=== PATIENT | female | born 1965 | race Caucasian/White ===

== ENCOUNTER 2019-05-22 02:22 | Emergency (ER) | payer OTHER ==
[2019-05-22] MEDS ORDERED: MORPHINE 4 MG/ML SYR ONE (03:08)
[2019-05-22] MEDS ORDERED: NA CHLORIDE 0.9% 1,000 ML ONE (03:09)
[2019-05-22] MEDS ORDERED: KETOROLAC 30 MG/ML INJ ONE (03:09)
[2019-05-22] MEDS ORDERED: ONDANSETRON 4 MG/2 ML VIAL ONE (03:09)
[2019-05-22] MEDS ORDERED: FAMOTIDINE 20 MG/2 ML VIAL IV ONE (03:15)
[2019-05-22 04:05] LABS: Absolute Lymphocytes (CBC) 0.9 K/uL (0.7-4.9); Basophils % 0.7 % (0-1.3); Hematocrit 39.5 % (36.0-45.0); MPV 7.4 fL (7.6-11.3); RBC Red Blood Cell Count 4.69 M/uL (3.86-4.86)
[2019-05-22 04:15] LABS: Albumin 3.4 g/dL (3.4-5.0); Bilirubin Direct 0.2 mg/dL (0-0.2); Bilirubin Total 0.6 mg/dL (0.2-1.0); Protein, Total 6.5 g/dL (6.4-8.2)
--- NOTE | 2019-05-22 04:44 | ER ---
Nurse's Notes [facility] Name: Carley Caceres Age: 53 yrs Sex: Female : 1965 Arrival Date: 05/22/2019 Time: 02:29 Bed 6 Private MD: Diagnosis: Hydronephrosis with renal and ureteral calculous obstruction-3 mm uvj Presentation: 05/22 02:32 Presenting complaint: Patient states: "I am having abdominal pain on my right side with jd3 nausea and vomiting.". Transition of care: patient was not received from another setting of care. Onset of symptoms was May 22, 2019. Risk Assessment: Do you want to hurt yourself or someone else? Patient reports no desire to harm self or others. Initial Sepsis Screen: Does the patient meet any 2 criteria? No. Patient's initial sepsis screen is negative. Does the patient have a suspected source of infection? No. Patient's initial sepsis screen is negative. Care prior to arrival: None. 02:32 Method Of Arrival: Ambulatory jd3 02:32 Acuity: BHAVYA 3 jd3 Historical: - Allergies: 02:33 No Known Allergies; jd3 - Home Meds: 02:33 None [Active]; jd3 - PMHx: 02:33 None; jd3 - PSHx: 02:33 Cholecystectomy; knee; foot; jd3 - Immunization history:: Adult Immunizations up to date. - Social history:: Smoking status: Patient/guardian denies using tobacco. - Ebola Screening: : Patient negative for fever greater than or equal to 101.5 degrees Fahrenheit, and additional compatible Ebola Virus Disease symptoms. - Family history:: not pertinent. Screenin:11 Abuse screen: Denies threats or abuse. Denies injuries from another. Nutritional rr5 screening: No deficits noted. Tuberculosis screening: No symptoms or risk factors identified. Fall Risk IV access (20 points). Total Del Rosario Fall Scale indicates No Risk (0-24 pts). Assessment: 02:50 General: Appears in no apparent distress. uncomfortable, Behavior is calm, cooperative, rr5 appropriate for age. Pain: Complains of pain in right upper quadrant Pain radiates to right mid back Pain currently is 10 out of 10 on a pain scale. Quality of pain is described as aching, Pain began gradually, Is intermittent. 02:50 Neuro: Level of Consciousness is awake, alert, obeys commands, Oriented to person, rr5 place, time, situation, Appropriate for age. Cardiovascular: Capillary refill < 3 seconds Patient's skin is warm and dry. Respiratory: Airway is patent Respiratory effort is even, unlabored, Respiratory pattern is regular, symmetrical. GI: Abdomen is round Reports upper abdominal pain. : Reports pain in right flank(s), Pain is 10 out of 10 on a pain scale. EENT: No signs and/or symptoms were reported regarding the EENT system. Derm: Skin is intact, is healthy with good turgor, Skin temperature is warm. Musculoskeletal: Capillary refill < 3 seconds, Reports pain in back. 03:45 Reassessment: Patient appears in no apparent distress at this time. Patient is alert, rr5 oriented x 3, equal unlabored respirations, skin warm/dry/pink. no complaints made, awaiting for CT result. Patient denies pain at this time. Patient states feeling better. Patient states symptoms have improved. 04:30 Reassessment: Patient appears in no apparent distress at this time. Patient and/or rr5 family updated on plan of care and expected duration. Pain level reassessed. Patient is alert, oriented x 3, equal unlabored respirations, skin warm/dry/pink. 05:09 Reassessment: Patient appears in no apparent distress at this time. Patient is alert, rr5 oriented x 3, equal unlabored respirations, skin warm/dry/pink. discharge instruction given and explained without complaints made, verbalized understanding. Patient denies pain at this time. Patient states feeling better. Patient states symptoms have improved. Vital Signs: 02:33 BP 158 / 77; Pulse 57; Resp 19 S; Temp 97.7(O); Pulse Ox 97% on R/A; Weight 93.44 kg jd3 (R); Height 5 ft. 4 in. (162.56 cm) (R); Pain 9/10; 03:47 BP 128 / 73; Pulse 66; Resp 16; Pulse Ox 99% ; Pain 0/10; rr5 04:54 BP 116 / 73; Pulse 58; Resp 16; Pulse Ox 97% on R/A; rv 05:10 BP 119 / 70; Pulse 60; Resp 17; Temp 97.9; Pulse Ox 99% ; Pain 0/10; rr5 02:33 Body Mass Index 35.36 (93.44 kg, 162.56 cm) jd3 ED Course: 02:29 Patient arrived in ED. cf2 02:31 Osito Chew, RN is Primary Nurse. rr5 02:32 Triage completed. jd3 02:34 Arm band placed on. jd3 02:36 Alonso Johnson MD is Attending Physician. nusrat 03:00 Inserted saline lock: 20 gauge in left forearm, using aseptic technique. Blood rr5 collected. 03:37 CT Stone Protocol In Process Unspecified. EDMS 03:47 No provider procedures requiring assistance completed. rr5 03:47 Lab(s) recollected, by me, sent to lab. rr5 04:42 Clovis Vann MD is Referral Physician. nusrat 04:56 Patient has correct armband on for positive identification. Bed in low position. Call rv light in reach. Pulse ox on. NIBP on. Administered Medications: 03:05 Drug: NS 0.9% 1000 ml Route: IV; Rate: 1 bolus; Site: left forearm; rr5 05:11 Follow up: Response: No adverse reaction; IV Status: Completed infusion; IV Intake: rr5 1000ml 03:06 Drug: Zofran 4 mg Route: IVP; Site: left forearm; rr5 04:11 Follow up: Response: No adverse reaction rr5 03:08 Drug: TORadol 30 mg Route: IVP; Site: left forearm; rr5 04:08 Follow up: Response: No adverse reaction; Marked relief of symptoms rr5 03:10 Drug: morphine 4 mg {Note: rass 0.} Route: IVP; Site: left forearm; rr5 04:10 Follow up: Response: No adverse reaction; Marked relief of symptoms; RASS: Alert and rr5 Calm (0) 03:11 Drug: Pepcid 20 mg Route: IVP; Site: left forearm; rr5 04:11 Follow up: Response: No adverse reaction; Marked relief of symptoms rr5 04:48 Drug: Flomax 0.4 mg Route: PO; rr5 05:11 Follow up: Response: No adverse reaction rr5 04:48 Drug: Rocephin 1 grams Route: IV; Rate: per protocol; Site: left forearm; rr5 05:10 Follow up: Response: No adverse reaction; IV Status: Completed infusion; IV Intake: [id number] Intake: 05:10 IV: 10ml; Total: 10ml. rr5 05:11 IV: 1000ml; Total: 1010ml. rr5 Outcome: 04:42 Discharge ordered by MD. silverio 05:11 Patient left the ED. rr5 Signatures: Dispatcher [employer] EDMS Alonso Johnson MD MD cha Davies, Jonathon, RN RN jd3 Asher Jerry RN RN Osito Madrigal RN RN rr5 Nohelia Celaya cf2 Corrections: (The following items were deleted from the chart) 04:54 04:54 BP 153 / 69; Pulse 69bpm; Resp 21bpm; Pulse Ox 99% RA; rv rv
--- NOTE | 2019-05-22 04:44 | EDPHYS ---
Physician Documentation [facility] Name: Carley Caceres Age: 53 yrs Sex: Female : 1965 Arrival Date: 05/22/2019 Time: 02:29 Bed 6 Private MD: RAÚL Physician Alonso Johnson HPI: 05/22 03:08 This 53 yrs old Female presents to ER via Ambulatory with complaints of Back nusrat Pain, Abdominal Pain. 03:08 The patient presents with pain that is acute, with no known mechanism of injury. The nusrat symptoms are located in the low back, right mid back and right low back. Onset: The symptoms/episode began/occurred just prior to arrival. The pain does not radiate. Associated signs and symptoms: The patient has no apparent associated signs or symptoms. The problem was sustained without known cause. Modifying factors: The patient symptoms are alleviated by nothing, the patient symptoms are aggravated by any movement, nothing. Severity of symptoms: At their worst the symptoms were moderate, in the emergency department the symptoms are unchanged. The patient has not experienced similar symptoms in the past. Historical: - Allergies: 02:33 No Known Allergies; jd3 - Home Meds: 02:33 None [Active]; jd3 - PMHx: 02:33 None; jd3 - PSHx: 02:33 Cholecystectomy; knee; foot; jd3 - Immunization history:: Adult Immunizations up to date. - Social history:: Smoking status: Patient/guardian denies using tobacco. - Ebola Screening: : Patient negative for fever greater than or equal to 101.5 degrees Fahrenheit, and additional compatible Ebola Virus Disease symptoms. - Family history:: not pertinent. ROS: 03:08 Constitutional: Negative for fever, chills, and weight loss, Eyes: Negative for injury, nusrat pain, redness, and discharge, ENT: Negative for injury, pain, and discharge, Neck: Negative for injury, pain, and swelling, Cardiovascular: Negative for chest pain, palpitations, and edema, Respiratory: Negative for shortness of breath, cough, wheezing, and pleuritic chest pain, : Negative for injury, bleeding, discharge, and swelling, MS/Extremity: Negative for injury and deformity, Skin: Negative for injury, rash, and discoloration, Neuro: Negative for headache, weakness, numbness, tingling, and seizure, Psych: Negative for depression, anxiety, suicide ideation, homicidal ideation, and hallucinations, Allergy/Immunology: Negative for hives, rash, and allergies, Endocrine: Negative for neck swelling, polydipsia, polyuria, polyphagia, and marked weight changes, Hematologic/Lymphatic: Negative for swollen nodes, abnormal bleeding, and unusual bruising. 03:08 Abdomen/GI: Positive for abdominal pain, of the posterior aspect of right lateral abdomen, anterior aspect of right lateral abdomen, right upper quadrant and right lower quadrant. Exam: 03:08 Constitutional: This is a well developed, well nourished patient who is awake, alert, nusrat and in no acute distress. Head/Face: Normocephalic, atraumatic. Eyes: Pupils equal round and reactive to light, extra-ocular motions intact. Lids and lashes normal. Conjunctiva and sclera are non-icteric and not injected. Cornea within normal limits. Periorbital areas with no swelling, redness, or edema. ENT: Nares patent. No nasal discharge, no septal abnormalities noted. Tympanic membranes are normal and external auditory canals are clear. Oropharynx with no redness, swelling, or masses, exudates, or evidence of obstruction, uvula midline. Mucous membranes moist. Neck: Trachea midline, no thyromegaly or masses palpated, and no cervical lymphadenopathy. Supple, full range of motion without nuchal rigidity, or vertebral point tenderness. No Meningismus. Chest/axilla: Normal chest wall appearance and motion. Nontender with no deformity. No lesions are appreciated. Cardiovascular: Regular rate and rhythm with a normal S1 and S2. No gallops, murmurs, or rubs. Normal PMI, no JVD. No pulse deficits. Respiratory: Lungs have equal breath sounds bilaterally, clear to auscultation and percussion. No rales, rhonchi or wheezes noted. No increased work of breathing, no retractions or nasal flaring. Back: No spinal tenderness. No costovertebral tenderness. Full range of motion. Skin: Warm, dry with normal turgor. Normal color with no rashes, no lesions, and no evidence of cellulitis. MS/ Extremity: Pulses equal, no cyanosis. Neurovascular intact. Full, normal range of motion. Neuro: Awake and alert, GCS 15, oriented to person, place, time, and situation. Cranial nerves II-XII grossly intact. Motor strength 5/5 in all extremities. Sensory grossly intact. Cerebellar exam normal. Normal gait. Psych: Awake, alert, with orientation to person, place and time. Behavior, mood, and affect are within normal limits. 03:08 Abdomen/GI: Inspection: distension, Bowel sounds: normal, Palpation: mild abdominal tenderness, in the right upper quadrant and right lower quadrant, Liver: no appreciated palpable abnormalities, Hernia: not appreciated. Vital Signs: 02:33 BP 158 / 77; Pulse 57; Resp 19 S; Temp 97.7(O); Pulse Ox 97% on R/A; Weight 93.44 kg jd3 (R); Height 5 ft. 4 in. (162.56 cm) (R); Pain 9/10; 03:47 BP 128 / 73; Pulse 66; Resp 16; Pulse Ox 99% ; Pain 0/10; rr5 04:54 BP 116 / 73; Pulse 58; Resp 16; Pulse Ox 97% on R/A; rv 05:10 BP 119 / 70; Pulse 60; Resp 17; Temp 97.9; Pulse Ox 99% ; Pain 0/10; rr5 02:33 Body Mass Index 35.36 (93.44 kg, 162.56 cm) jd3 MDM: 02:36 Patient medically screened. [facility] 03:10 Data reviewed: vital signs, nurses notes. [facility] 05/22 03:08 Order name: Basic Metabolic Panel; Complete Time: 04:41 [facility] 05/22 03:08 Order name: CBC with Diff; Complete Time: 04:41 [facility] 05/22 03:08 Order name: Creatinine for Radiology; Complete Time: 04:41 [facility] 05/22 03:08 Order name: Hepatic Function; Complete Time: 04:41 [facility] 05/22 03:08 Order name: Lipase; Complete Time: 04:41 [facility] 05/22 03:19 Order name: Urine Dipstick--Ancillary (enter results) or 05/22 03:08 Order name: CT Stone Protocol [facility] 05/22 03:08 Order name: IV Saline Lock; Complete Time: 03:10 [facility] 05/22 03:08 Order name: Labs collected and sent; Complete Time: 03:10 [facility] Administered Medications: 03:05 Drug: NS 0.9% 1000 ml Route: IV; Rate: 1 bolus; Site: left forearm; rr5 05:11 Follow up: Response: No adverse reaction; IV Status: Completed infusion; IV Intake: rr5 1000ml 03:06 Drug: Zofran 4 mg Route: IVP; Site: left forearm; rr5 04:11 Follow up: Response: No adverse reaction rr5 03:08 Drug: TORadol 30 mg Route: IVP; Site: left forearm; rr5 04:08 Follow up: Response: No adverse reaction; Marked relief of symptoms rr5 03:10 Drug: morphine 4 mg {Note: rass 0.} Route: IVP; Site: left forearm; rr5 04:10 Follow up: Response: No adverse reaction; Marked relief of symptoms; RASS: Alert and rr5 Calm (0) 03:11 Drug: Pepcid 20 mg Route: IVP; Site: left forearm; rr5 04:11 Follow up: Response: No adverse reaction; Marked relief of symptoms rr5 04:48 Drug: Flomax 0.4 mg Route: PO; rr5 05:11 Follow up: Response: No adverse reaction rr5 04:48 Drug: Rocephin 1 grams Route: IV; Rate: per protocol; Site: left forearm; rr5 05:10 Follow up: Response: No adverse reaction; IV Status: Completed infusion; IV Intake: [id number] Disposition: 05/22/19 04:42 Discharged to Home. Impression: Hydronephrosis with renal and ureteral calculous obstruction - 3 mm uvj. - Condition is Stable. - Discharge Instructions: Kidney Stones, Kidney Stones, [id number], Hydronephrosis, Dietary Guidelines to Help Prevent Kidney Stones. - Prescriptions for Tylenol- Codeine #3 300-30 mg Oral Tablet - take 2 tablet by ORAL route every 6 hours As needed; 30 tablet. Zofran 4 mg Oral Tablet - take 1 tablet by ORAL route every 12 hours As needed; 20 tablet. Flomax 0.4 mg Oral Capsule, Sust. Release 24 hr - take 1 capsule by ORAL route once daily 1/2 hour following the same meal each day; 30 capsule. Cipro 500 mg Oral Tablet - take 1 tablet by ORAL route every 12 hours for 7 days; 14 tablet. - Medication Reconciliation Form, Thank You Letter, Antibiotic Education, Prescription Opioid Use form. - Follow up: Private Physician; When: 2 - 3 days; Reason: Recheck today's complaints, Continuance of care, Re-evaluation by your physician. Follow up: Clovis Vann MD; When: 2 - 3 days; Reason: Recheck today's complaints, Re-evaluation by your physician. - Problem is new. - Symptoms have improved. Signatures: Dispatcher [employer] Alonso Garcia MD MD cha Davies, Jonathon RN RN jd3 Osito Chew RN RN rr5 Corrections: (The following items were deleted from the chart) 05:11 04:42 05/22/2019 04:42 Discharged to Home. Impression: Hydronephrosis with renal and rr5 ureteral calculous obstruction - 3 mm uvj. Condition is Stable. Forms are Medication Reconciliation Form, Thank You Letter, Antibiotic Education, Prescription Opioid Use. Follow up: Private Physician; When: 2 - 3 days; Reason: Recheck today's complaints, Continuance of care, Re-evaluation by your physician. Follow up: Clovis Vann; When: 2 - 3 days; Reason: Recheck today's complaints, Re-evaluation by your physician. Problem is new. Symptoms have improved. nusrat
[2019-05-22] MEDS ORDERED: TAMSULOSIN 0.4 MG SR CAP ONE (04:45)
[2019-05-22 04:46] LABS: Urine Blood 2+ (NEG); Urine Glucose 3+ (NEG); Urine Protein 1+ (NEG); Urine Specific Gravity >1.030 (1.005-1.030)
[2019-05-22] MEDS ORDERED: CEFTRIAXONE/SWI 1gm 1 GM/10 ML SYR ONE (04:46)
[2019-05-22 06:01] VITALS: BP 119/70; TEMP 97.9; O2SAT 99
--- NOTE | 2019-05-23 11:42 | RAD REPORT ---
EXAM DESCRIPTION: CT - Stone Protocol - 05/22/2019 5:53 am CLINICAL HISTORY: The patient is 53 years old and is Female; ABD PAIN TECHNIQUE: Axial computed tomography images of the abdomen and pelvis without intravenous contrast. Sagittal and coronal reformatted images were created and reviewed. This CT exam was performed usi ng one or more of the following dose reduction techniques: automated exposure control, adjustment o f the mA and/or kV according to patient size, and/or use of iterative reconstruction technique. COMPARISON: No relevant prior studies available. FINDINGS: LUNG BASES: Unremarkable. No mass. No consolidation. ABDOMEN: LIVER: Homogeneous without focal mass. GALLBLADDER AND BILE DUCTS: Surgical clips are present in the right upper quadrant, consistent w ith previous cholecystectomy. PANCREAS: Fatty infiltration of the pancreas is noted. No ductal dilation. SPLEEN: Unremarkable. ADRENALS: Unremarkable. No mass. KIDNEYS AND URETERS: Mild right hydroureteronephrosis is present secondary to a 3 mm right UVJ c alculus. Edema of the right kidney with perinephric and periureteral stranding is present. Several right intrarenal calcifications are present. The left kidney is normal. STOMACH AND BOWEL: The stomach is decompressed. The small bowel is normal in caliber. Stool is p resent throughout the colon. There is no mucosal thickening or evidence of bowel obstruction. PELVIS: APPENDIX: The appendix is normal in caliber without surrounding inflammation. BLADDER: The bladder is nearly empty. No stones. REPRODUCTIVE: Unremarkable as visualized. ABDOMEN and PELVIS: INTRAPERITONEAL SPACE: Unremarkable. No free air. No significant fluid collection. BONES/JOINTS: Multilevel degenerative changes of the spine are present. SOFT TISSUES: The soft tissues are normal. VASCULATURE: Unremarkable. No abdominal aortic aneurysm. LYMPH NODES: Unremarkable. No enlarged lymph nodes. IMPRESSION: Mild right hydroureteronephrosis is present secondary to a 3 mm right UVJ calculus. Electronically signed by: Dora Irizarry MD 05/22/2019 4:07 AM ADULT EDUCATION TEACHER Due to temporary technical issues with the PACS/Fluency reporting system, reports are being signed by the in house radiologist as a courtesy to ensure prompt reporting. The interpreting radiologist is f ully responsible for the content of the report.
== END 2019-05-22 05:11 | disposition home or self-care (01) ==
LOC: ER 02:22
DX: N13.2 Hydronephrosis with renal and ureteral calculous obstruction (principal)
CPT/HCPCS: 96365; 96361; 85025; 80048; 36415; 80076; 81003; 83690; 76377; 74176; 96375; 99284; J0696; J7030; J2405

== ENCOUNTER 2020-03-05 23:28 | Emergency (ER) | payer OTHER ==
[2020-03-06] MEDS ORDERED: MORPHINE 4 MG/ML SYR ONE (00:03)
[2020-03-06] MEDS ORDERED: ONDANSETRON 4 MG/2 ML VIAL ONE (00:04)
[2020-03-06 00:17] LABS: Absolute Lymphocytes (CBC) 2.2 K/uL (0.7-4.9); Basophils % 1.1 % (0-1.3); Hematocrit 42.6 % (36.0-45.0); Lymphocytes % 29.9 % (15.3-44.8)
[2020-03-06 00:27] LABS: Albumin 3.7 g/dL (3.4-5.0); Bilirubin Direct 0.2 mg/dL (0-0.2); Bilirubin Total 0.7 mg/dL (0.2-1.0); Potassium 3.8 mmol/L (3.5-5.1); Protein, Total 7.6 g/dL (6.4-8.2)
[2020-03-06 01:32] LABS: Urine Blood 2+ (NEG); Urine Glucose 2+ (NEG); Urine Protein NEGATIVE (NEG); Urine Specific Gravity >1.030 (1.005-1.030)
--- NOTE | 2020-03-06 01:37 | ER ---
Nurse's Notes [facility] Name: Carley Caceres Age: 54 yrs Sex: Female : 1965 Arrival Date: 03/05/2020 Time: 23:32 Bed 14 Private MD: Diagnosis: Calculus of ureter Presentation: 03/05 23:41 Chief complaint: Patient states: R flank pain and nausea that began at 9pm this ss evening. Pt has a history of kidney stones and feels like this feels very similar. Coronavirus screen: Client denies travel out of the [place] in the last 14 days. Ebola Screen: Patient denies exposure to infectious person. Patient denies travel to an Ebola-affected area in the 21 days before illness onset. Initial Sepsis Screen: Does the patient meet any 2 criteria? No. Patient's initial sepsis screen is negative. Does the patient have a suspected source of infection? No. Patient's initial sepsis screen is negative. Risk Assessment: Do you want to hurt yourself or someone else? Patient reports no desire to harm self or others. Onset of symptoms was March 05, 2020. 23:41 Method Of Arrival: Ambulatory ss 23:41 Acuity: BHAVYA 3 ss Historical: - Allergies: 23:45 No Known Allergies; ss - Home Meds: 23:45 None [Active]; ss - PMHx: 23:45 Kidney stones; ss - PSHx: 23:45 Cholecystectomy; knee; foot; ss - Immunization history:: Adult Immunizations up to date. - Social history:: Smoking status: Patient denies any tobacco usage or history of. Screenin/08 00:04 Abuse screen: Denies threats or abuse. Denies injuries from another. Nutritional wh screening: No deficits noted. Tuberculosis screening: No symptoms or risk factors identified. Fall Risk None identified. Assessment: 00:02 General: Appears. General: Appears in no apparent distress. uncomfortable, Behavior is wh calm, cooperative, appropriate for age. Pain: Complains of pain in right mid back and right low back Pain does not radiate. Pain currently is 9 out of 10 on a pain scale. Quality of pain is described as dull, pressure, Pain began 3 hours ago. Neuro: Level of Consciousness is awake, alert, obeys commands, Oriented to person, place, time, situation, Appropriate for age. Cardiovascular: Heart tones S1 S2. Respiratory: Airway is patent Respiratory effort is even, unlabored, Respiratory pattern is regular, symmetrical, Breath sounds are clear bilaterally. GI: Abdomen is flat, non-distended, Bowel sounds present X 4 quads. Abd is soft and non tender X 4 quads. Reports nausea. : No signs and/or symptoms were reported regarding the genitourinary system. EENT: No signs and/or symptoms were reported regarding the EENT system. Derm: Skin is intact, is healthy with good turgor, Skin is pink, warm \T\ dry. normal. Musculoskeletal: Circulation, motion, and sensation intact. 01:13 Reassessment: Patient appears in no apparent distress at this time. Patient and/or wh family updated on plan of care and expected duration. Pain level reassessed. Patient is alert, oriented x 3, equal unlabored respirations, skin warm/dry/pink. Patient states feeling better. Patient states symptoms have improved. 02:17 Reassessment: Patient and/or family updated on plan of care and expected duration. Pain wh level reassessed. Patient is alert, oriented x 3, equal unlabored respirations, skin warm/dry/pink. Patient states feeling better. Patient states symptoms have improved. Vital Signs: 03/05 23:41 BP 163 / 90; Pulse 63; Resp 18; Temp 98.8(TE); Pulse Ox 100% on R/A; Weight 90.72 kg; Height 5 ft. 4 in. (162.56 cm); Pain 10/10; 03/06 00:05 BP 130 / 75; Pulse 66; Resp 18; Pulse Ox 99% on R/A; wh 01:13 BP 117 / 66; Pulse 69; Resp 18; Pulse Ox 98% on R/A; wh 02:17 BP 109 / 68; Pulse 66; Resp 16; Pulse Ox 98% on R/A; wh 03/05 23:41 Body Mass Index 34.33 (90.72 kg, 162.56 cm) ED Course: 03/05 23:32 Patient arrived in ED. bp1 23:41 Jarvis Best MD is Attending Physician. tw4 23:42 Marina Freeman is Primary Nurse. wh 23:44 Triage completed. ss 23:45 Arm band placed on right wrist. 03/06 00:04 Patient has correct armband on for positive identification. Placed in gown. Bed in low wh position. Call light in reach. Side rails up X 1. Pulse ox on. NIBP on. 00:36 CT Stone Protocol In Process Unspecified. EDMS 01:37 Clovis Vann MD is Referral Physician. tw4 01:37 Tong Vaz MD is Referral Physician. tw4 02:18 No provider procedures requiring assistance completed. IV discontinued, intact, bleeding controlled, No redness/swelling at site. Administered Medications: 03/05 23:56 Drug: morphine 4 mg {Note: RASS 0.} Route: IVP; Site: right antecubital; 03/06 02:18 Follow up: Response: No adverse reaction; Pain is decreased; RASS: Alert and Calm (0) 03/05 23:58 Drug: Zofran (Ondansetron) 4 mg Route: IVP; Site: right antecubital; 03/06 02:18 Follow up: Response: No adverse reaction; Nausea is decreased Outcome: 01:36 Discharge ordered by . tw4 02:27 Discharged to home ambulatory. 02:27 Condition: stable 02:27 Discharge instructions given to patient, Instructed on discharge instructions, follow up and referral plans. no drinking with medication, no driving heavy equipment, medication usage, POC Demonstrated understanding of instructions, follow-up care, medications, POC Prescriptions given X 4. 02:28 Patient left the ED. Signatures: Dispatcher [employer] EDVA Jessica Browne RN RN ss [place], Winsy Jarvis Best MD MD 4 Vidhya Adair [facility]
--- NOTE | 2020-03-06 01:37 | EDPHYS ---
Physician Documentation [facility] Name: Carley Caceres Age: 54 yrs Sex: Female : 1965 Arrival Date: 03/05/2020 Time: 23:32 Bed 14 Private MD: ED Physician Jarvis Best HPI: 03/06 01:16 This 54 yrs old Female presents to ER via Ambulatory with complaints of Low tw4 Back Pain, Possible Kidney Stone. 01:16 The patient presents with pain that is acute. The symptoms are located in the low back, tw4 right mid back. The pain radiates to the right lower quadrant. The problem was sustained from unknown cause. Onset: The symptoms/episode began/occurred today, 3 hour(s) ago. Modifying factors: The patient symptoms are alleviated by nothing, the patient symptoms are aggravated by nothing. Associated signs and symptoms: The patient has no apparent associated signs or symptoms. The patient has not experienced similar symptoms in the past. Historical: - Allergies: 03/05 23:45 No Known Allergies; ss - Home Meds: 23:45 None [Active]; ss - PMHx: 23:45 Kidney stones; ss - PSHx: 23:45 Cholecystectomy; knee; foot; ss - Immunization history:: Adult Immunizations up to date. - Social history:: Smoking status: Patient denies any tobacco usage or history of. ROS: 03/06 01:16 Constitutional: Negative for fever, chills, and weight loss, Eyes: Negative for injury, tw4 pain, redness, and discharge, Cardiovascular: Negative for chest pain, palpitations, and edema, Respiratory: Negative for shortness of breath, cough, wheezing, and pleuritic chest pain, Abdomen/GI: Negative for abdominal pain, nausea, vomiting, diarrhea, and constipation, Back: Negative for injury and pain, Skin: Negative for injury, rash, and discoloration, Neuro: Negative for headache, weakness, numbness, tingling, and seizure. Exam: 01:16 Constitutional: This is a well developed, well nourished patient who is awake, alert, tw4 and in no acute distress. Head/Face: Normocephalic, atraumatic. Cardiovascular: Regular rate and rhythm with a normal S1 and S2. No gallops, murmurs, or rubs. Normal PMI, no JVD. No pulse deficits. Respiratory: Lungs have equal breath sounds bilaterally, clear to auscultation and percussion. No rales, rhonchi or wheezes noted. No increased work of breathing, no retractions or nasal flaring. Abdomen/GI: Soft, non-tender, with normal bowel sounds. No distension or tympany. No guarding or rebound. No evidence of tenderness throughout. MS/ Extremity: Pulses equal, no cyanosis. Neurovascular intact. Full, normal range of motion. Neuro: Awake and alert, GCS 15, oriented to person, place, time, and situation. Cranial nerves II-XII grossly intact. Motor strength 5/5 in all extremities. Sensory grossly intact. Cerebellar exam normal. Normal gait. Vital Signs: 03/05 23:41 BP 163 / 90; Pulse 63; Resp 18; Temp 98.8(TE); Pulse Ox 100% on R/A; Weight 90.72 kg; ss Height 5 ft. 4 in. (162.56 cm); Pain 10/10; 03/06 00:05 BP 130 / 75; Pulse 66; Resp 18; Pulse Ox 99% on R/A; wh 01:13 BP 117 / 66; Pulse 69; Resp 18; Pulse Ox 98% on R/A; wh 02:17 BP 109 / 68; Pulse 66; Resp 16; Pulse Ox 98% on R/A; wh 03/05 23:41 Body Mass Index 34.33 (90.72 kg, 162.56 cm) ss MDM: 03/05 23:41 Patient medically screened. tw4 03/06 01:35 Differential diagnosis: arthritis, strain. Data reviewed: vital signs, nurses notes. tw4 Data reviewed: lab test result(s), CBC, hepatic panel, urinalysis, radiologic studies, CT scan. Data interpreted: Pulse oximetry: Interpretation: normal. Counseling: I had a detailed discussion with the patient and/or guardian regarding: the historical points, exam findings, and any diagnostic results supporting the discharge/admit diagnosis, lab results, radiology results. Medication response: morphine relieved the patient's pain. Symptoms have resolved. Response to treatment: the patient's symptoms have markedly improved after treatment, and as a result, I will discharge patient. Special discussion: I discussed with the patient/guardian in detail that at this point there is no indication for admission to the hospital. It is understood, however, that if the symptoms persist or worsen the patient needs to return immediately for re-evaluation. 03/05 23:42 Order name: Basic Metabolic Panel; Complete Time: 01:34 [facility] 03/06 01:34 Interpretation: Normal except: CL 108; GLUC 306; GFR 76. [facility] 03/05 23:42 Order name: CBC with Diff; Complete Time: 01:34 [facility] 03/06 01:34 Interpretation: Normal except: RBC 5.10. [facility] 03/05 23:42 Order name: Hepatic Function; Complete Time: 01:34 [facility] 03/06 01:34 Interpretation: Normal except: ALK 122; GLOB 3.9; A/G 0.9. [facility] 03/05 23:42 Order name: Lipase; Complete Time: 01:34 [facility] 03/06 01:34 Interpretation: Within normal limits: LIP 186. [facility] 03/05 23:42 Order name: CT Stone Protocol [facility] 03/06 00:10 Order name: Urine Dipstick--Ancillary (enter results); Complete Time: 01:34 [facility] 03/06 01:34 Interpretation: Normal except: USPGR >1.030; UGLUC 2+; UBLD 2+. [facility] 03/05 23:42 Order name: IV Saline Lock; Complete Time: 00:01 [facility] 03/05 23:42 Order name: Labs collected and sent; Complete Time: 00:01 [facility] 03/05 23:42 Order name: Urine Dipstick-Ancillary (obtain specimen); Complete Time: 00:01 [facility] Administered Medications: 03/05 23:56 Drug: morphine 4 mg {Note: RASS 0.} Route: IVP; Site: right antecubital; 03/06 02:18 Follow up: Response: No adverse reaction; Pain is decreased; RASS: Alert and Calm (0) 03/05 23:58 Drug: Zofran (Ondansetron) 4 mg Route: IVP; Site: right antecubital; 03/06 02:18 Follow up: Response: No adverse reaction; Nausea is decreased Disposition: 03/06/20 01:36 Discharged to Home. Impression: Calculus of ureter. - Condition is Stable. - Discharge Instructions: Renal Colic, Kidney Stones, [id number]. - Prescriptions for Ibuprofen 800 mg Oral Tablet - take 1 tablet by ORAL route every 8 hours As needed take with food; 30 tablet. Tylenol- Codeine #3 300-30 mg Oral Tablet - take 2 tablet by ORAL route every 6 hours As needed; 30 tablet. Zofran 4 mg Oral Tablet - take 1 tablet by ORAL route every 12 hours As needed; 6 tablet. Flomax 0.4 mg Oral Capsule, Sust. Release 24 hr - take 1 capsule by ORAL route once daily 1/2 hour following the same meal each day; 30 capsule. - Medication Reconciliation Form, Thank You Letter, Antibiotic Education, Prescription Opioid Use form. - Follow up: Private Physician; When: Upon discharge from the Emergency Department; Reason: Recheck today's complaints, Continuance of care, Re-evaluation by your physician. Follow up: Clovis Vann MD; When: Upon discharge from the Emergency Department; Reason: Recheck today's complaints, Continuance of care, Re-evaluation by your physician. Follow up: Tong Vaz MD; When: Upon discharge from the Emergency Department; Reason: Recheck today's complaints, Continuance of care, Re-evaluation by your physician. - Problem is new. - Symptoms have improved. Signatures: Dispatcher [employer] EDMS Jessica Browne RN RN ss Habalo, Winsy wh Wadley, Terrence, MD MD tw4 Corrections: (The following items were deleted from the chart) 01:37 01:36 03/06/2020 01:36 Discharged to Home. Impression: Calculus of ureter. Condition is tw4 Stable. Forms are Medication Reconciliation Form, Thank You Letter, Antibiotic Education, Prescription Opioid Use. Follow up: Private Physician; When: Upon discharge from the Emergency Department; Reason: Recheck today's complaints, Continuance of care, Re-evaluation by your physician. Problem is new. Symptoms have improved. tw4 02:28 01:37 03/06/2020 01:36 Discharged to Home. Impression: Calculus of ureter. Condition is Stable. Discharge Instructions: Renal Colic, Kidney Stones, [id number]. Prescriptions for Ibuprofen 800 mg Oral Tablet - take 1 tablet by ORAL route every 8 hours As needed take with food; 30 tablet, Tylenol-Codeine #3 300-30 mg Oral Tablet - take 2 tablet by ORAL route every 6 hours As needed; 30 tablet, Zofran 4 mg Oral Tablet - take 1 tablet by ORAL route every 12 hours As needed; 6 tablet, Flomax 0.4 mg Oral Capsule, Sust. Release 24 hr - take 1 capsule by ORAL route once daily 1/2 hour following the same meal each day; 30 capsule. and Forms are Medication Reconciliation Form, Thank You Letter, Antibiotic Education, Prescription Opioid Use. Follow up: Private Physician; When: Upon discharge from the Emergency Department; Reason: Recheck today's complaints, Continuance of care, Re-evaluation by your physician. Follow up: Clovis Vann; When: Upon discharge from the Emergency Department; Reason: Recheck today's complaints, Continuance of care, Re-evaluation by your physician. Follow up: Tong Vaz; When: Upon discharge from the Emergency Department; Reason: Recheck today's complaints, Continuance of care, Re-evaluation by your physician. Problem is new. Symptoms have improved. tw4
--- NOTE | 2020-03-06 11:13 | RAD REPORT ---
EXAM DESCRIPTION: CT Abdomen and Pelvis Without Intravenous Contrast CLINICAL HISTORY: The patient is 54 years old and is Female; FLANK PAIN TECHNIQUE: Axial computed tomography images of the abdomen and pelvis without intravenous contrast. Sagittal and coronal reformatted images were created and reviewed. This CT exam was performed usi ng one or more of the following dose reduction techniques: automated exposure control, adjustment o f the mA and/or kV according to patient size, and/or use of iterative reconstruction technique. COMPARISON: No relevant prior studies available. FINDINGS: LUNG BASES: Unremarkable. No mass. No consolidation. ABDOMEN: LIVER: Homogeneous without focal mass. GALLBLADDER AND BILE DUCTS: Surgical clips are present in the right upper quadrant, consistent w ith previous cholecystectomy. PANCREAS: Mild fatty infiltration of the pancreas is present. No ductal dilation. SPLEEN: Unremarkable. ADRENALS: Unremarkable. No mass. KIDNEYS AND URETERS: Mild right hydroureteronephrosis is present secondary to a 4 mm calculus wi thin the right base of the bladder. Minimal right perinephric stranding is present. Punctate bilate ral intrarenal calcifications are present. STOMACH AND BOWEL: The stomach is distended with fluid and air. The small bowel is relatively de compressed. Minimal stool is noted throughout colon. Scattered colonic diverticula are noted without surrounding inflammation. There is no bowel obstruction. PELVIS: APPENDIX: The appendix is normal in caliber without surrounding inflammation. BLADDER: The bladder is not well distended. REPRODUCTIVE: Unremarkable as visualized. ABDOMEN and PELVIS: INTRAPERITONEAL SPACE: Unremarkable. No free air. No significant fluid collection. BONES/JOINTS: Mild multilevel degenerative change of the spine is present. SOFT TISSUES: The soft tissues are normal. VASCULATURE: Unremarkable. No abdominal aortic aneurysm. LYMPH NODES: Unremarkable. No enlarged lymph nodes. IMPRESSION: 1. Mild right hydroureteronephrosis is present secondary to a 4 mm calculus within the right base of the bladder. Patient had a prior exam of May 22, 2019, the report stated mild rig ht hydroureteronephrosis. Unfortunately, the images are unable to be viewed at this time to compare i f the degree of hydroureteronephrosis on today's exam and calcification described on prior studies ar e the same. If images become available for comparison, an addendum will be made. 2. Bilateral nephrolithiasis. Electronically signed by: Dora Irizarry MD 03/06/2020 1:26 AM CDT Due to temporary technical issues with the PACS/Fluency reporting system, reports are being signed by the in house radiologist without review as a courtesy to ensure prompt reporting. The interpreting r adiologist is fully responsible for the content of the report.
[2020-03-06 12:07] VITALS: TEMP 98.8
[2020-03-06 12:09] VITALS: O2SAT 98
[2020-03-06 12:11] VITALS: BP 109/68
== END 2020-03-06 02:28 | disposition home or self-care (01) ==
LOC: ER 23:28
DX: N20.1 Calculus of ureter (principal); Z87.442 Personal history of urinary calculi
CPT/HCPCS: 36415; 74176; 76377; 80048; 80076; 81003; 83690; 85025; 96374; 96375; 99284

== ENCOUNTER 2022-06-06 14:20 | Emergency (ER) | payer BC ==
--- OUTSIDE RECORDS SUMMARY | 2022-06-06 14:28 | XMS REPORT | Continuity of Care Document ---
:1965 Author Organization [facility] t Address [address] [place] [address] Care Team Providers Name Role Phone Arvind Appiah Primary Care Physician Arvind Camara Attending Clinician Unavailable Jannie Sampson RN Attending Clinician Unavailable Nurse, [facility] Attending Clinician Unavailable Only, Ang Db Test Attending Clinician Unavailable Beba Chávez Attending Clinician Doctor Unassigned, [place] Attending Clinician Unavailable Payers Payer Name Policy Type Policy Number Effective Date Expiration Date S sravan Blue Cross C1 [id number] Common Spiri t Blue [facility] Blue Cross C1 [id number] Common Spiri t Blue [facility] Blue Cross C1 [id number] Common Spiri t [facility] Problems Condition Condition Condition Status Onset Resolution Last Treating Co mments Source Name Details Category Date Date Treatment Clinician Date [id number] Primary Problem Active Comm on osteoarthr Spirit itis of [facility] right knee [facility] [id number] Primary Problem Active Comm on osteoarthr Spirit itis of [facility] left knee [facility] Kidney Kidney Problem Active Common stone stones [facility] Hydronephr Hydronephr Problem Active C ommon osis with osis Spirit renal and concurrent - C HI ureteral with and St calculous due to [facility] obstructio calculi of Me dical n kidney and Center ureter Allergies, Adverse Reactions, Alerts Allergy Allergy Status Severity Reaction(s) Onset Inactive Treating Comm ents Source Name Type Date Date Clinician NO KNOWN Drug Active Univers ALLERGIE Class ity of S [facility] Social History Social Habit Start Date Stop Date Quantity Comments Source Exposure to Not sure [facility] SARS-CoV-2 (event) Medica l Branch History of Tobacco [facility] Use [facility] Sex Assigned At Common [facility] Tobacco use and 2017-01-02 2017-01-02 Never used [place] [facility] [facility] exposure 00:00:00 00:00:00 [facility] Smoking Status Start Date Stop Date Source Never Smoker [facility] Medications Ordered Filled Start Stop Current Ordering Indication Dosage Frequency Signature Comments Components Source Medication Medication Date Date Medication? Clinician (SIG) Name Name Meloxicam Meloxicam 2020- No 1{table QD Meloxicam 7.5 MG 7.5 MG 6-15 -15 t} 7.5 MG 00:00: 00:00 00 :00 Meloxicam Meloxicam 2020- No 1{table QD Meloxicam 7.5 MG 7.5 MG 6-15 07-15 t} 7.5 MG 00:00: 00:00 00 :00 acetaminoph Yes TK 1 T PO U nivers en-codeine 6-23 Q 6 H ity of 300-30 mg 00:00: [place] tablet [facility] cephALEXin Yes TK ONE C Uni vers 500 mg 6-23 PO Q 8 H ity of capsule 00:00: FOR [address] [facility] s [facility] acetaminoph Yes TK 1 T PO U nivers en-codeine 6-23 Q 6 H ity of 300-30 mg 00:00: [place] tablet [facility] cephALEXin Yes TK ONE C Uni vers 500 mg 6-23 PO Q 8 H ity of capsule 00:00: [place] [facility] acetaminoph Yes TK 1 T PO U nivers en-codeine 6-23 Q 6 H ity of 300-30 mg 00:00: [place] tablet [facility] cephALEXin Yes TK ONE C Uni vers 500 mg 6-23 PO Q 8 H ity of capsule 00:00: FOR 7 DAYS Medical Branch acetaminoph Yes TK 1 T PO U nivers en-codeine 6-23 Q 6 H ity of 300-30 mg 00:00: [place] tablet [facility] cephALEXin Yes TK ONE C Uni vers 500 mg 6-23 PO Q 8 H ity of capsule 00:00: FOR 7 DAYS [facility] Branch acetaminoph Yes TK 1 T PO U nivers en-codeine 6-23 Q 6 H ity of 300-30 mg 00:00: [place] tablet [facility] cephALEXin Yes TK ONE C Uni vers 500 mg 6-23 PO Q 8 H ity of capsule 00:00: FOR 7 DAYS [facility] Branch acetaminoph Yes TK 1 T PO U nivers en-codeine 6-23 Q 6 H ity of 300-30 mg 00:00: [place] tablet [facility] cephALEXin Yes TK ONE C Uni vers 500 mg 6-23 PO Q 8 H ity of capsule 00:00: FOR 7 DAYS [facility] Ondansetron Ondansetron Yes Brandie 1 tablet Common [place] on the Spirit tongue and - [facility] allow to [facility] ibuprofen ibuprofen Yes Brandie not Comm on [place] defined [facility] acetaminoph acetaminoph Yes Brandie not Common en en Simin defined Spirit [facility] Tamsulosin Tamsulosin Yes Brandie 1 capsule Common HCl HCl Simin Spirit [facility] Tamsulosin Tamsulosin No 1{capsu QD Tamsulosin HCl 0.4 MG HCl 0.4 MG le} HCl 0.4 MG Acetaminoph Acetaminoph No Acetaminop en-Codeine en-Codeine hen-Codein #3 #3 e #3 Ibuprofen Ibuprofen No Ibuprofen acetaminoph acetaminoph No acetaminop en en hen ibuprofen ibuprofen No ibuprofen Ondansetron Ondansetron No 1{table QD Ondansetro 4 MG 4 MG t_on_th n 4 MG e_tongu e_and_a llow_to _dissol ve} Ondansetron Ondansetron No Ondansetro HCl HCl n HCl Tamsulosin Tamsulosin No 1{capsu QD Tamsulosin HCl 0.4 MG HCl 0.4 MG le} HCl 0.4 MG Acetaminoph Acetaminoph No Acetaminop en-Codeine en-Codeine hen-Codein #3 #3 e #3 Ibuprofen Ibuprofen No Ibuprofen acetaminoph acetaminoph No acetaminop en en hen ibuprofen ibuprofen No ibuprofen Ondansetron Ondansetron No 1{table QD Ondansetro 4 MG 4 MG t_on_th n 4 MG e_tongu e_and_a llow_to _dissol ve} Ondansetron Ondansetron No Ondansetro HCl HCl n HCl Tamsulosin Tamsulosin No 1{capsu QD Tamsulosin HCl 0.4 MG HCl 0.4 MG le} HCl 0.4 MG Meloxicam Meloxicam No 1{table QD Meloxicam 7.5 MG 7.5 MG t} 7.5 MG Acetaminoph Acetaminoph No Acetaminop en-Codeine en-Codeine hen-Codein #3 #3 e #3 Ibuprofen Ibuprofen No Ibuprofen acetaminoph acetaminoph No acetaminop en en hen ibuprofen ibuprofen No ibuprofen Ondansetron Ondansetron No 1{table QD Ondansetro 4 MG 4 MG t_on_th n 4 MG e_tongu e_and_a llow_to _dissol ve} Ondansetron Ondansetron No Ondansetro HCl HCl n HCl Vital Signs Vital Name Observation Time Observation Value Comments Source height 2020-12-11 08:30:00 64 [in_i] [facility] weight 2020-12-11 08:30:00 195.1 [lb_av] [facility] temperature 2020-12-11 08:30:00 97.3 [degF] [facility] bmi 2020-12-11 08:30:00 33.49 kg/m2 [facility] blood pressure 2020-12-11 08:30:00 130 mm[Hg] Common [facility] - systolic [facility] blood pressure 2020-12-11 08:30:00 76 mm[Hg] Common [facility] - diastolic [facility] Procedures Procedure Date / Time Performed Performing Clinician [facility] e ASSIGNMENT OF BENEFITS 2021-02-27 20:14:52 Doctor Unassigned, No [facility] Branch Encounters Start End Encounter Admission Attending Care Care Encounter Source Date/Time Date/Time Type Type Clinicians Facility Department ID 2021-07-24 Outpatient Hoa, STLMLC STLC [id number] Common 13:52:59 Arvind [id number] [facility] 2021-07-24 Outpatient Hoa, STLMLC STLC [id number] Common 13:14:35 Arvind [id number] [facility] 2021-07-24 Outpatient Hoa, STLMLC STLC [id number] Common 13:07:54 Arvind [id number] [facility] 2021-07-24 Outpatient Hoa, STLMLC STLC [id number] Common 12:17:47 Arvind [id number] [facility] 2021-07-24 Outpatient STLMLC STLMLC [id number] Common 11:45:14 [id number] [facility] 2021-03-01 2021-03-01 Letter KAMILA Sampson [id number] Univers 00:00:00 00:00:00 (Out) Jannie SIDDIQUI [id number] it y of [facility] [id number] Erwin as [phone] [address] 2021-02-28 2021-02-28 Telephone Nurse, Cuco [facility] [id number] Univers 00:00:00 00:00:00 Db Urgent Health [id number] ity of [facility] [id number] Erwin as Mani?Blea [id number] [address] Medical Office Building 2021-02-27 2021-02-27 Laboratory Only, Cuco Db Test [facility] 1.2.8 [id number] Univers 15:14:53 15:24:53 Only Green, MuseStorm [id number] ity of [place] [id number] Erwin as Mani?Blea [phone] [place] [address] Medical Office Building 2021-02-27 2021-02-27 Outpatient R [facility] [id number] Univers 15:10:00 15:10:00 ity of [facility] 2021-02-27 2021-02-27 Orders Doctor KAMILA [id number] 00:00:00 00:00:00 Only Unassigned, ARTUR [id number] ity of [place] [facility] [id number] Erwin as [phone] [address] 2021-01-08 2021-01-08 (TEL) STLC STLC [id number] Co mmon 00:00:00 00:00:00 [facility] 2020-12-14 2020-12-14 (TEL) STLC STLC [id number] Co mmon 00:00:00 00:00:00 [facility] 2020-12-11 2020-12-11 OFFICE [facility] [id number] Co mmon 00:00:00 00:00:00 VISIT NEW Spir it PT LEVEL 4 [facility] 2020-03-09 2020-03-09 [id number] Common 10:45:00 10:45:00 t Specialty/U Sp holly Specialty rology - [facility] Results This patient has no known results.
--- NOTE | 2022-06-06 16:34 | EDPHYS ---
Physician Documentation [facility] Name: Carley Caceres Age: 56 yrs Sex: Female : 1965 Arrival Date: 06/06/2022 Time: 14:21 Bed DIS4 Private MD: ED Physician Satya Leon HPI: 06/06 16:32 This 56 yrs old Female presents to ER via Ambulatory with complaints of Allergic snw Reaction - poison denise, Facial Swelling. 16:32 The patient presents with localized swelling, rash, redness of skin. Onset: The snw symptoms/episode began/occurred suddenly, 3 day(s) ago, and became persistent. Possible causes: poison denise, poison oak. Severity of symptoms: At their worst the symptoms were moderate severe. The patient has not experienced similar symptoms in the past. The patient has not recently seen a physician. Historical: - Allergies: 15:50 No Known Allergies; ss - PMHx: 15:50 Kidney stones; ss - Immunization history:: Client reports receiving the 2nd dose of the Covid vaccine. - Social history:: Smoking status: Patient denies any tobacco usage or history of. ROS: 16:31 Constitutional: Negative for fever, chills, and weight loss, ENT: Negative for injury, snw pain, and discharge, Neck: Negative for injury, pain, and swelling, Cardiovascular: Negative for chest pain, palpitations, and edema, Respiratory: Negative for shortness of breath, cough, wheezing, and pleuritic chest pain, Abdomen/GI: Negative for abdominal pain, nausea, vomiting, diarrhea, and constipation, Back: Negative for injury and pain, : Negative for injury, bleeding, discharge, and swelling, MS/Extremity: Negative for injury and deformity, Neuro: Negative for headache, weakness, numbness, tingling, and seizure, Psych: Negative for depression, anxiety, suicide ideation, homicidal ideation, and hallucinations. 16:31 Eyes: Positive for swelling. 16:31 Skin: Positive for rash, swelling. Exam: 16:30 Constitutional: This is a well developed, well nourished patient who is awake, alert, snw and in no acute distress. ENT: Nares patent. No nasal discharge, no septal abnormalities noted. Tympanic membranes are normal and external auditory canals are clear. Oropharynx with no redness, swelling, or masses, exudates, or evidence of obstruction, uvula midline. Mucous membranes moist. Neck: Trachea midline, no thyromegaly or masses palpated, and no cervical lymphadenopathy. Supple, full range of motion without nuchal rigidity, or vertebral point tenderness. No Meningismus. Chest/axilla: Normal chest wall appearance and motion. Nontender with no deformity. No lesions are appreciated. Cardiovascular: Regular rate and rhythm with a normal S1 and S2. No gallops, murmurs, or rubs. Normal PMI, no JVD. No pulse deficits. Respiratory: Lungs have equal breath sounds bilaterally, clear to auscultation and percussion. No rales, rhonchi or wheezes noted. No increased work of breathing, no retractions or nasal flaring. Abdomen/GI: Soft, non-tender, with normal bowel sounds. No distension or tympany. No guarding or rebound. No evidence of tenderness throughout. Back: No spinal tenderness. No costovertebral tenderness. Full range of motion. Skin: Warm, dry with normal turgor. Normal color with no rashes, no lesions, and no evidence of cellulitis. + patchy areas of contact dermatitis with erythema, edema, and scaliness MS/ Extremity: Pulses equal, no cyanosis. Neurovascular intact. Full, normal range of motion. Neuro: Awake and alert, GCS 15, oriented to person, place, time, and situation. Cranial nerves II-XII grossly intact. Motor strength 5/5 in all extremities. Sensory grossly intact. Cerebellar exam normal. Normal gait. Psych: Awake, alert, with orientation to person, place and time. Behavior, mood, and affect are within normal limits. 16:30 Eyes: Periorbital structures: swelling, that is mild, on the left supraorbital ridge, left upper eyelid and left lower eyelid, Pupils: no acute changes, Extraocular movements: no acute changes. Vital Signs: 15:48 Pulse 68; Resp 17; Temp 98.8(O); Pulse Ox 100% on R/A; Weight 80.29 kg; Height 5 ft. 3 ss in. (160.02 cm); 15:51 BP 113 / 70; ss 15:48 Body Mass Index 31.35 (80.29 kg, 160.02 cm) MDM: 16:29 Patient medically screened. snw 16:36 Data reviewed: vital signs, nurses notes. Data interpreted: Pulse oximetry: on room air snw is 100 %. Interpretation: normal. Counseling: I had a detailed discussion with the patient and/or guardian regarding: the historical points, exam findings, and any diagnostic results supporting the discharge/admit diagnosis, the need for outpatient follow up, to return to the emergency department if symptoms worsen or persist or if there are any questions or concerns that arise at home. Special discussion: Based on the history and exam findings, there is no indication for further emergent testing or inpatient evaluation. I discussed with the patient/guardian the need to see the salesperson parts for further evaluation of the symptoms. I discussed with the patient/guardian the need to see the primary care provider for further evaluation of the symptoms. Administered Medications: 17:16 Drug: ZyrTEC - Cetirizine 10 mg Route: PO; iw 17:16 Drug: Pepcid (famotidine) 20 mg Route: PO; iw 17:16 Drug: predniSONE 40 mg Route: PO; iw 17:16 Drug: Doxycycline 100 mg Route: PO; iw Disposition: 19:15 Co-signature as Attending Physician, Satya Leon MD I agree with the assessment and rt plan of care. Disposition Summary: 06/06/22 16:33 Discharge Ordered Location: Home snw Condition: Stable snw Diagnosis - Irritant contact dermatitis due to plants, except food snw Followup: snw - With: Emergency Department - When: As needed - Reason: Worsening of condition Followup: snw - With: Private Physician - When: 2 - 3 days - Reason: Recheck today's complaints, Continuance of care, Re-evaluation by your physician Discharge Instructions: - Discharge Summary Sheet snw - Contact Dermatitis snw - Allergies, Adult, [id number] snw Forms: - Medication Reconciliation Form snw - Thank You Letter snw - Antibiotic Education snw - Prescription Opioid Use snw Prescriptions: - Zyrtec 10 mg Oral Tablet - take 1 tablet by ORAL route once daily As needed; 20 tablet; Refills: 0, snw Product Selection Permitted - Doxycycline Hyclate 100 mg Oral Tablet - take 1 tablet by ORAL route every 12 hours; 20 tablet; Refills: 0, Product snw Selection Permitted - Prednisone 20 mg Oral Tablet - take 2 tablets by ORAL route once daily for 5 days; 10 tablet; Refills: 0, snw Product Selection Permitted - Pepcid 20 mg Oral Tablet - take 1 tablet by ORAL route once daily; 20 tablet; Refills: 0, Product snw Selection Permitted Signatures: Tamiko Baldwin FNP-C SYSTEMS PROGRAMMER-Denzelw Ivelisse Reinoso, RN EILEEN iw Jessica Browne RN RN ss Satya Leon MD MD rt
--- NOTE | 2022-06-06 16:34 | ER ---
Nurse's Notes [facility] Name: Carley Caceres Age: 56 yrs Sex: Female : 1965 Arrival Date: 06/06/2022 Time: 14:21 Bed DIS4 Private MD: Diagnosis: Irritant contact dermatitis due to plants, except food Presentation: 06/06 15:48 Chief complaint: Patient states: "I'm having a bad reaction to poison denise." Pt reports ss it began on Thursday, but got worse on her face yesterday. Coronavirus screen: Client denies travel out of the [place] in the last 14 days. Ebola Screen: Patient denies exposure to infectious person. Patient denies travel to an Ebola-affected area in the 21 days before illness onset. Onset: The symptoms/episode began/occurred 5 day(s) ago. Anaphylaxis evaluation, no signs or symptoms of anaphylaxis were noted. Initial Sepsis Screen: Does the patient meet any 2 criteria? No. Patient's initial sepsis screen is negative. Does the patient have a suspected source of infection? No. Patient's initial sepsis screen is negative. Risk Assessment: Do you want to hurt yourself or someone else? Patient reports no desire to harm self or others. Onset of symptoms was June 02, 2022. 15:48 Method Of Arrival: Ambulatory ss 15:48 Acuity: BHAVYA 4 ss Historical: - Allergies: 15:50 No Known Allergies; ss - PMHx: 15:50 Kidney stones; ss - Immunization history:: Client reports receiving the 2nd dose of the Covid vaccine. - Social history:: Smoking status: Patient denies any tobacco usage or history of. Vital Signs: 15:48 Pulse 68; Resp 17; Temp 98.8(O); Pulse Ox 100% on R/A; Weight 80.29 kg; Height 5 ft. 3 ss in. (160.02 cm); 15:51 BP 113 / 70; ss 15:48 Body Mass Index 31.35 (80.29 kg, 160.02 cm) ss ED Course: 14:21 Patient arrived in ED. as 14:28 Tamiko Baldwin FNP-C [facility]. snw 14:28 Satya Leon MD is Attending Physician. snw 15:50 Triage completed. ss 15:50 Arm band placed on left wrist. ss 17:16 Ivelisse Reinoso, RN is Primary Nurse. iw Administered Medications: 17:16 Drug: ZyrTEC - Cetirizine 10 mg Route: PO; iw 17:16 Drug: Pepcid (famotidine) 20 mg Route: PO; iw 17:16 Drug: predniSONE 40 mg Route: PO; iw 17:16 Drug: Doxycycline 100 mg Route: PO; iw Outcome: 16:33 Discharge ordered by . trisha 17:17 Patient left the ED. iw Signatures: Tamiko Baldwin, PAPO-C ROD AND TUBE STRAIGHTENER-Esther Mcbride as Ivelisse Reinoso, RN RN iw Jessica Browne RN RN ss
[2022-06-06] MEDS ORDERED: predniSONE 20 MG TAB ONE (17:09)
[2022-06-06] MEDS ORDERED: DOXYCYCLINE 100 MG CAP PO ONE (17:09)
[2022-06-06] MEDS ORDERED: CETIRIZINE HCL 5 MG TABLET ONE (17:09)
[2022-06-06] MEDS ORDERED: FAMOTIDINE 20 MG TAB ONE (17:09)
[2022-06-06 19:40] VITALS: BP 113/70
[2022-06-07 11:55] VITALS: TEMP 98.8; O2SAT 100
== END 2022-06-06 17:17 | disposition home or self-care (01) ==
LOC: ER 14:20
DX: L24.7 Irritant contact dermatitis due to plants, except food (principal)
CPT/HCPCS: 99282; J7512

== ENCOUNTER 2022-09-02 15:02 | Emergency (ER) | payer BC ==
--- OUTSIDE RECORDS SUMMARY | 2022-09-02 15:14 | XMS REPORT | Continuity of Care Document ---
:1965 Author Organization [facility] t Address [address] [place] [address] Care Team Providers Name Role Phone Arvind Appiah Primary Care Physician Arvind Caamra Attending Clinician Unavailable Jannie Sampson RN Attending Clinician Unavailable Nurse, Ang [facility] Attending Clinician Unavailable Only, Ang Db Test Attending Clinician Unavailable Beba Chávez Attending Clinician Doctor Unassigned, [place] Attending Clinician Unavailable Payers Payer Name Policy Type Policy Number Effective Date Expiration Date S sravan Blue Cross C1 [id number] Common Spiri t [facility] Blue Cross C1 [id number] Common Spiri t [facility] Blue Cross C1 [id number] Common Spiri t [facility] Problems Condition Condition Condition Status Onset Resolution Last Treating Co mments Source Name Details Category Date Date Treatment Clinician Date [id number] Primary Problem Active Comm on osteoarthr Spirit itis of [facility] right knee [facility] [id number] Primary Problem Active Comm on osteoarthr Spirit itis of [facility] left knee [facility] Kidney Kidney Problem Active Common stone stones [facility] Hydronephr Hydronephr Problem Active C ommon [...] Active Univers ALLERGIE Class ity of S [facility] Social History Social Habit Start Date Stop Date Quantity Comments Source Exposure to Not sure [facility] SARS-CoV-2 (event) Medica l Branch History of Tobacco Common [facility] Use [facility] Sex Assigned At Common Sp holly - [facility] Tobacco use and 2017-01-02 2017-01-02 Never used [facility] exposure 00:00:00 00:00:00 [facility] Smoking Status Start Date Stop Date Source Never Smoker [facility] Medications Ordered Filled Start Stop Current Ordering [...] 6 H ity of 300-30 mg 00:00: [place] tablet [facility] cephALEXin Yes TK ONE C Uni vers 500 mg 6-23 PO Q 8 H ity of capsule 00:00: FOR 7 DAYS [facility] acetaminoph Yes TK 1 T PO U nivers en-codeine 6-23 Q 6 H ity of 300-30 mg 00:00: [place] tablet [facility] cephALEXin Yes TK ONE C Uni vers 500 mg 6-23 PO Q 8 H ity of capsule 00:00: FOR 7 DAYS [place] [facility] acetaminoph 2017-0 Yes TK 1 T PO U nivers [...] ity of capsule 00:00: FOR 7 DAYS [facility] Branch acetaminoph Yes TK 1 T PO U nivers en-codeine 6-23 Q 6 H ity of 300-30 mg 00:00: [place] tablet Medical Branch cephALEXin Yes TK ONE C Uni vers 500 mg 6-23 PO Q 8 H ity of capsule 00:00: FOR 7 DAYS [facility] Ondansetron Ondansetron Yes Brandie 1 tablet Common [facility] tongue and - [facility] allow to [facility] ibuprofen ibuprofen Yes Brandie not Comm on Springer defined [facility] acetaminoph acetaminoph Yes Brandie not Common en en Simin defined Spirit [facility] Tamsulosin Tamsulosin Yes Brandie 1 capsule Common HCl HCl Simin Spirit [facility] Tamsulosin Tamsulosin No 1{capsu QD Tamsulosin HCl [...] Comments Source height 2020-12-11 08:30:00 64 [in_i] [facility] weight 2020-12-11 08:30:00 195.1 [lb_av] [facility] temperature 2020-12-11 08:30:00 97.3 [degF] [facility] bmi 2020-12-11 08:30:00 33.49 kg/m2 [facility] blood pressure 2020-12-11 08:30:00 130 mm[Hg] Common [facility] - systolic [facility] blood pressure 2020-12-11 08:30:00 76 mm[Hg] Common [facility] - diastolic [facility] Procedures Procedure Date / Time Performed Performing Clinician [facility] e ASSIGNMENT OF BENEFITS 2021-02-27 20:14:52 Doctor Unassigned, No [facility] Encounters Start End Encounter Admission Attending Care Care Encounter Source Date/Time Date/Time Type Type Clinicians Facility Department ID 2021-07-24 Outpatient Hoa, STLMLC STLMLC [id number] Common 13:52:59 Arvind [id number] [facility] 2021-07-24 Outpatient Hoa, STLMLC STLC [id number] Common 13:14:35 Arvind [id number] [facility] 2021-07-24 Outpatient Hoa, STLMLC STLMLC [id number] Common 13:07:54 Arvind [id number] [facility] 2021-07-24 Outpatient Hoa, STLMLC STLMLC [id number] Common 12:17:47 Arvind [id number] [facility] 2021-07-24 Outpatient STLMLC STLMLC [id number] Common 11:45:14 [id number] [facility] 2021-03-01 2021-03-01 Letter KAMILA Sampson [id number] Univers 00:00:00 00:00:00 (Out) Jannie SIDDIQUI [id number] it y of [facility] [id number] Erwin as [phone] [address] 2021-02-28 2021-02-28 Telephone Nurse, Cuco [facility] [id number] Univers 00:00:00 00:00:00 Db Urgent Health [id number] ity of [facility] [id number] Erwin as Mani?Blea [phone] [address] Medical Office Building 2021-02-27 2021-02-27 Laboratory Only, Cuco Db Test [facility] [id number] Univers 15:14:53 15:24:53 Only Green, Telisma [id number] ity of [place] [id number] Erwin as Mani?Blea [phone] [place] olive [address] Medical Office Building 2021-02-27 2021-02-27 Outpatient R [facility] [id number] Univers 15:10:00 15:10:00 ity of [facility] 2021-02-27 2021-02-27 Orders Doctor KAMILA [id number] Univers 00:00:00 00:00:00 Only Unassigned, ARTUR [id number] ity of [place] [facility] [id number] Erwin as [phone] [address] 2021-01-08 2021-01-08 (TEL) [facility] ST[facility] [id number] Co mmon 00:00:00 00:00:00 [facility] 2020-12-14 2020-12-14 (TEL) [facility] ST[facility] [id number] Co mmon 00:00:00 00:00:00 [facility] 2020-12-11 2020-12-11 OFFICE [facility] [id number] Co mmon 00:00:00 00:00:00 VISIT NEW Spir it PT LEVEL 4 [facility] 2020-03-09 2020-03-09 Outpatient [id number] Common 10:45:00 10:45:00 t Specialty/U Sp holly Specialty rology - [facility] Results This patient has no known results.
[2022-09-02] MEDS ORDERED: ONDANSETRON 4 MG/2 ML VIAL ONE (15:51)
[2022-09-02] MEDS ORDERED: NA CHLORIDE 0.9% 1,000 ML ONE (15:51)
[2022-09-02] MEDS ORDERED: MORPHINE 4 MG/ML SYR ONE (15:51)
[2022-09-02 16:11] LABS: Hematocrit 42.4 % (36.0-45.0); Lymphocytes % 17.9 % (15.3-44.8); MCV 83.2 fL (80-100); MPV 7.1 fL (7.6-11.3)
[2022-09-02 16:24] LABS: Albumin 3.8 g/dL (3.4-5.0); Potassium 3.9 mmol/L (3.5-5.1); Protein, Total 7.4 g/dL (6.4-8.2)
--- NOTE | 2022-09-02 17:35 | RAD REPORT ---
EXAM DESCRIPTION: CTAbdomen Pelvis W Contrast - 09/02/2022 5:26 pm CLINICAL HISTORY: Abdominal pain. ABD PAIN COMPARISON: No comparisons TECHNIQUE: Biphasic CT imaging of the abdomen and pelvis was performed with 100 ml non-ionic IV cont rast. All CT scans are performed using dose optimization technique as appropriate and may include automated exposure control or mA/KV adjustment according to patient size. FINDINGS: The lung bases are clear. The liver, spleen, pancreas, adrenal glands are within normal limits. Cholecystectomy clips. 5 mm stone is seen inferior pole right kidney without hydronephrosis. 2 mm calculus left UVJ resulting in mild left hydronephrosis. In addition there is 4 mm stone superio r left ureter at the level of the UPJ. Punctate stone is seen superior calyx left kidney. No bowel obstruction, free air, free fluid or abscess. Mild nonspecific mesenteric edema. No evidence of appendicitis. No evidence of significant lymphadenopathy. Mild lumbosacral degenerative changes. IMPRESSION: 2 mm calculus left UVJ resulting in mild left hydronephrosis. 4 mm stone superior left u reter the left UPJ. Punctate bilateral nephrolithiasis
[2022-09-02] MEDS ORDERED: TAMSULOSIN 0.4 MG SR CAP ONE (18:33)
[2022-09-02] MEDS ORDERED: KETOROLAC 30 MG/ML INJ ONE (18:34)
[2022-09-02] MEDS ORDERED: MAGNESIUM SULFATE 1 gm IVPB 1 GM/100 ML BAG IV ONE (18:34)
[2022-09-02 18:39] LABS: Urine Blood 3+ (Negative); Urine Glucose 2+ (Negative); Urine Protein 1+ (Negative); Urine Specific Gravity 1.015 (1.005-1.030); Urine pH 5.5 (5.0-7.0)
[2022-09-02 21:50] VITALS: TEMP 96.8
[2022-09-02 21:53] VITALS: BP 117/61; O2SAT 97
--- NOTE | 2022-09-19 14:18 | ER ---
Nurse's Notes [facility] Name: Carley Caceres Age: 57 yrs Sex: Female : 1965 Arrival Date: 09/02/2022 Time: 15:07 Bed 18 Private MD: Wolfgang Zimmerman C Diagnosis: Calculus of ureter Presentation: 09/02 15:24 Chief complaint: Patient states: N/V/ABD Pain began at 1230 after ate lunch. No fever. ld1 Coronavirus screen: At this time, the client does not indicate any symptoms associated with coronavirus-19. Ebola Screen: No symptoms or risks identified at this time. Initial Sepsis Screen: Does the patient meet any 2 criteria? No. Patient's initial sepsis screen is negative. Does the patient have a suspected source of infection? No. Patient's initial sepsis screen is negative. Risk Assessment: Do you want to hurt yourself or someone else? Patient reports no desire to harm self or others. Onset of symptoms was September 02, 2022. 15:24 Method Of Arrival: Ambulatory ld1 15:24 Acuity: BHAVYA 3 ld1 Triage Assessment: 15:25 General: Appears in no apparent distress. comfortable, Behavior is cooperative, ld1 appropriate for age, anxious. Pain: Complains of pain in low back area and abdomen Pain does not radiate. Pain currently is 10 out of 10 on a pain scale. Quality of pain is described as throbbing. EENT: No signs and/or symptoms were reported regarding the EENT system. Neuro: Level of Consciousness is awake, alert, obeys commands, Oriented to person, place, time, situation. Cardiovascular: Capillary refill < 3 seconds Patient's skin is warm and dry. Respiratory: Airway is patent Respiratory effort is even, unlabored. GI: Abdomen is flat, non-distended, Reports lower abdominal pain, nausea, vomiting. : No signs and/or symptoms were reported regarding the genitourinary system. Derm: No signs and/or symptoms reported regarding the dermatologic system. Musculoskeletal: No signs and/or symptoms reported regarding the musculoskeletal system. Historical: - Allergies: 15:25 No Known Allergies; ld1 - Home Meds: 15:25 metformin 500 mg Oral tablet once [Active]; ld1 - PMHx: 15:25 Kidney stones; Hypertensive disorder; Diabetes mellitus; ld1 - Immunization history:: Adult Immunizations up to date, Client reports receiving the 2nd dose of the Covid vaccine. - Social history:: Smoking status: Patient denies any tobacco usage or history of. Patient/guardian denies using alcohol. Screenin:00 [facility] ED Fall Risk Assessment (Adult) History of falling in the last 3 months, bp including since admission No falls in past 3 months (0 pts). Abuse screen: Denies threats or abuse. Denies injuries from another. Nutritional screening: No deficits noted. Tuberculosis screening: No symptoms or risk factors identified. Assessment: 18:00 General: SEE TRIAGE NOTE. bp 19:10 Reassessment: Patient and/or family updated on plan of care and expected duration. Pain ha1 level reassessed. Patient is alert, oriented x 3, equal unlabored respirations, skin warm/dry/pink. Reassessment: awaiting for med infusion to be finish. Pain: Denies pain. Neuro: Level of Consciousness is awake, alert, obeys commands, Oriented to person, place, time, situation. Vital Signs: 15:24 Pulse 73; Resp 18; Temp 96.8(TE); Pulse Ox 99% on R/A; Weight 79.38 kg; Height 5 ft. 3 ld1 in. ; Pain 10/10; 15:29 BP 147 / 68; ld1 18:42 Pulse 87; Resp 16; Pulse Ox 99% ; bp 19:15 BP 117 / 61; Pulse 80; Resp 18 S; Pulse Ox 97% on R/A; ha1 15:24 Body Mass Index 31.00 (79.38 kg, 160.02 cm) ld1 15:24 Pain Scale: Adult ld1 ED Course: 15:07 Patient arrived in ED. am2 15:07 Wolfgang Zimmerman MD is Private Physician. am2 15:07 Rosa Goldstein [facility]NP-C [facility]. kb 15:07 Alonso Johnson MD is Attending Physician. kb 15:25 Triage completed. ld1 15:25 Arm band placed on right wrist. ld1 15:55 Inserted saline lock: 20 gauge in right antecubital area, using aseptic technique. ah1 Blood collected. 15:55 CBC with Diff Sent. ah1 15:55 CMP Sent. ah1 15:55 Lipase Sent. ah1 15:55 Urine Microscopic Only Sent. ah1 17:31 CT Abd/Pelvis - IV Contrast Only In Process Unspecified. EDMS 18:00 Patient has correct armband on for positive identification. Bed in low position. Call bp light in reach. Side rails up X2. 18:03 Joshua Moulton, RN is Primary Nurse. bp 18:46 Aashish Rosen MD is Referral Physician. kb 20:05 No provider procedures requiring assistance completed. IV discontinued, intact, ha1 bleeding controlled, No redness/swelling at site. Pressure dressing applied. Administered Medications: 15:54 Drug: NS 0.9% IV 1000 ml Route: IV; Rate: 1 bolus; Site: right antecubital; ld1 15:55 Drug: Ondansetron IVP 4 mg Route: IVP; Site: right antecubital; ld1 15:56 Drug: morphine IVP or IV 4 mg Route: IVP; Infused Over: 4 mins; Site: right antecubital;ld1 18:37 Drug: Magnesium Sulfate IVPB 1 grams Route: IVPB; Infused Over: 1 hrs; Site: right bp antecubital; 18:37 Drug: Flomax PO 0.4 mg Route: PO; bp 18:37 Drug: Ketorolac IVP 15 mg Route: IVP; Site: right antecubital; bp Medication: 18:00 VIS not applicable for this client. bp Outcome: 18:47 Discharge ordered by . kb 20:05 Discharged to home ambulatory. ha1 20:05 Condition: stable 20:06 Discharge instructions given to patient, Instructed on discharge instructions, follow ha1 up and referral plans. medication usage, Demonstrated understanding of instructions, follow-up care, medications, Prescriptions given X 3. 20:06 Patient left the ED. ha1 Signatures: Dispatcher [employer] EDCO Rosa Goldstein, MILK OF LIME SLAKER-C MILK OF LIME SLAKER-CkTraci Caban am2 Joshua Moulton, RN RN bp Benita Abebe RN RN 1 Fifi Andrade RN RN ha1 Thanh Mosquera [facility]
--- NOTE | 2022-09-19 14:18 | EDPHYS ---
Physician Documentation [facility] Name: Carley Caceres Age: 57 yrs Sex: Female : 1965 Arrival Date: 09/02/2022 Time: 15:07 Bed 18 Private MD: Wolfgang Zimmerman C ED Physician Alonso Johnson HPI: 09/02 16:27 This 57 yrs old Female presents to ER via Ambulatory with complaints of Back Pain, kb Abdominal Pain, Nausea. 16:27 The patient presents with abdominal pain in the left upper quadrant, in the left lower kb quadrant. Onset: The symptoms/episode began/occurred today, at 12:30. The symptoms do not radiate. Associated signs and symptoms: Pertinent positives: nausea and vomiting, dysuria, flank pain. The symptoms are described as constant. Modifying factors: The symptoms are alleviated by nothing, the symptoms are aggravated by nothing. Severity of pain: At its worst the pain was moderate in the emergency department the pain is unchanged. The patient has not experienced similar symptoms in the past. The patient has not recently seen a physician. Historical: - Allergies: 15:25 No Known Allergies; ld1 - Home Meds: 15:25 metformin 500 mg Oral tablet once [Active]; ld1 - PMHx: 15:25 Kidney stones; Hypertensive disorder; Diabetes mellitus; ld1 - Immunization history:: Adult Immunizations up to date, Client reports receiving the 2nd dose of the Covid vaccine. - Social history:: Smoking status: Patient denies any tobacco usage or history of. Patient/guardian denies using alcohol. ROS: 16:18 Constitutional: Negative for fever, chills, and weight loss. kb 16:18 Abdomen/GI: Positive for abdominal pain, nausea and vomiting. 16:18 Back: Positive for flank pain, on the left. 16:18 All other systems are negative. Exam: 16:18 Constitutional: This is a well developed, well nourished patient who is awake, alert, kb and in no acute distress. Head/Face: Normocephalic, atraumatic. ENT: Moist Mucous membranes Cardiovascular: Regular rate and rhythm with a normal S1 and S2. No gallops, murmurs, or rubs. No pulse deficits. Respiratory: Respirations even and unlabored. No increased work of breathing. Talking in full sentences Abdomen/GI: Soft, non-tender. No distention Skin: Warm, dry with normal turgor. Normal color. MS/ Extremity: Pulses equal, no cyanosis. Neurovascular intact. Full, normal range of motion. Neuro: Awake and alert, GCS 15, oriented to person, place, time, and situation. Moves all extremities. Normal gait. 16:18 Back: pain, is absent, ROM is normal, CVA tenderness, that is mild, is noted on the left. Vital Signs: 15:24 Pulse 73; Resp 18; Temp 96.8(TE); Pulse Ox 99% on R/A; Weight 79.38 kg; Height 5 ft. 3 ld1 in. ; Pain 10/10; 15:29 BP 147 / 68; ld1 18:42 Pulse 87; Resp 16; Pulse Ox 99% ; bp 19:15 BP 117 / 61; Pulse 80; Resp 18 S; Pulse Ox 97% on R/A; ha1 15:24 Body Mass Index 31.00 (79.38 kg, 160.02 cm) ld1 15:24 Pain Scale: Adult ld1 MDM: 15:27 Patient medically screened. kb 16:19 Data reviewed: vital signs, nurses notes. kb 16:26 Differential diagnosis: diverticulitis, non-specific abd pain, Pyelonephritis, kb Ureterolithiasis, urinary tract infection. ED course: Patient is a 57-year-old female who presents for abdominal pain, nausea, vomiting, flank pain and dysuria that started at 1230 today. On exam patient has mild CVA tenderness on the left side, no abdominal tenderness, respirations even and unlabored, lungs clear bilaterally, nontoxic in appearance. CT, serum labs and urinalysis ordered. 18:46 Counseling: I had a detailed discussion with the patient and/or guardian regarding: the kb historical points, exam findings, and any diagnostic results supporting the discharge/admit diagnosis, lab results, radiology results, the need for outpatient follow up, a family practitioner, a urologist, to return to the emergency department if symptoms worsen or persist or if there are any questions or concerns that arise at home. ED course: Discussed diagnostic results with patient. Educated on need to follow-up with urology. Patient reports resolution of pain at this time.. 09/02 15:30 Order name: CBC with Diff 09/02 15:30 Order name: CMP kb 09/02 15:30 Order name: Lipase kb 09/02 16:19 Order name: CBC with Automated Diff; Complete Time: 16:27 EDMS 09/02 16:25 Order name: Comprehensive Metabolic Panel; Complete Time: 16:27 EDMS 09/02 16:25 Order name: Lipase; Complete Time: 16:27 EDMS 09/02 18:40 Order name: Urine Dipstick-Ancillary; Complete Time: 18:43 EDMS 09/02 15:30 Order name: CT Abd/Pelvis - IV Contrast Only; Complete Time: 17:36 kb 09/02 15:30 Order name: IV Saline Lock; Complete Time: 15:55 kb 09/02 15:30 Order name: Labs collected and sent; Complete Time: 15:55 kb 09/02 15:30 Order name: Urine Dipstick-Ancillary (obtain specimen); Complete Time: 18:37 kb Administered Medications: 15:54 Drug: NS 0.9% IV 1000 ml Route: IV; Rate: 1 bolus; Site: right antecubital; ld1 15:55 Drug: Ondansetron IVP 4 mg Route: IVP; Site: right antecubital; ld1 15:56 Drug: morphine IVP or IV 4 mg Route: IVP; Infused Over: 4 mins; Site: right antecubital;ld1 18:37 Drug: Magnesium Sulfate IVPB 1 grams Route: IVPB; Infused Over: 1 hrs; Site: right bp antecubital; 18:37 Drug: Flomax PO 0.4 mg Route: PO; bp 18:37 Drug: Ketorolac IVP 15 mg Route: IVP; Site: right antecubital; bp Disposition Summary: 09/02/22 18:47 Discharge Ordered Location: Home kb Condition: Stable kb Diagnosis - Calculus of ureter kb Followup: kb - With: Emergency Department - When: As needed - Reason: Worsening of condition Followup: kb - With: Aashish Rosen MD - When: 2 - 3 days - Reason: Recheck today's complaints Discharge Instructions: - Discharge Summary Sheet kb - Kidney Stones, [id number] kb - Dietary Guidelines to Help Prevent Kidney Stones kb Forms: - Medication Reconciliation Form kb - Thank You Letter kb - Antibiotic Education kb - Prescription Opioid Use kb Prescriptions: - Flomax 0.4 mg Oral capsule - take 1 capsule by ORAL route daily; 10 capsule; Refills: 0, Product Selection kb Permitted - Zofran 4 mg Oral Tablet - take 1 tablet by ORAL route every 6 hours As needed; 15 tablet; Refills: 0, kb Product Selection Permitted - Diclofenac Sodium 75 mg Oral tablet,delayed release (DR/EC) - take 1 tablet by ORAL route 2 times per day As needed; 30 tablet; Refills: 0, kb Product Selection Permitted Signatures: Dispatcher [employer] Rosa Silva, Joshua Izquierdo, RN RN bp Benita Abebe RN RN ld1 Corrections: (The following items were deleted from the chart) 16:27 16:19 Differential diagnosis: Ureterolithiasis kb kb
== END 2022-09-02 20:06 | disposition home or self-care (01) ==
LOC: ER 15:02
DX: N20.1 Calculus of ureter (principal); Z87.442 Personal history of urinary calculi; E11.9 Type 2 diabetes mellitus without complications; I10 Essential (primary) hypertension
CPT/HCPCS: 85025; 36415; 81003; 83690; 80053; 74177; 96375; 96374; 99284; Q9967; J3475; J2405; J7030

== ENCOUNTER 2024-06-21 03:17 | Emergency (ER) | payer BC ==
[2024-06-21 04:27] LABS: Absolute Basophils 0.1 K/uL (0-0.5); Absolute Eosinophils 0.2 K/uL (0-0.5); Absolute Lymphocytes (CBC) 1.7 K/uL (0.7-4.9); Absolute Monocytes 0.6 K/uL (0.1-1.3); Absolute Neutrophil 4.4 K/uL (1.8-8.0); Basophils % 0.9 % (0-1.3); Eosinophils % 2.4 % (0-4.4); Hematocrit 42.1 % (36.0-45.0); Hemoglobin 14.2 g/dL (12.0-15.0); Lymphocytes % 25.2 % (15.3-44.8); MCH 28.2 pg (27.0-35.0); MCHC 33.6 g/dL (32.0-36.0); MCV 83.8 fL (80-100); MPV 7.7 fL (7.6-11.3); Monocytes % 8.9 % (3.3-12.3); Neutrophils % 62.6 % (41.7-73.7); Platelets 285 thou/uL (152-406); RBC Red Blood Cell Count 5.03 M/uL (3.86-4.86); Red Cell Distribution Width 13.1 % (12.1-15.2)
[2024-06-21 04:36] LABS: Albumin 3.6 g/dL (3.4-5.0); Albumin/Globulin Ratio 1.1 (1.1-1.8); Anion Gap 6.6 mEq/L (5.0-15.0); Bilirubin Total 0.5 mg/dL (0.2-1.0); Globulin 3.4 g/dL (2.3-3.5); Potassium 3.6 mEq/L (3.5-5.1)
[2024-06-21] MEDS ORDERED: TAMSULOSIN 0.4 MG SR CAP ONE (04:58)
[2024-06-21] MEDS ORDERED: MAGNESIUM SULFATE 1 gm IVPB 1 GM/100 ML BAG IV ONE (04:58)
[2024-06-21] MEDS ORDERED: ONDANSETRON 4 MG/2 ML VIAL ONE (04:58)
[2024-06-21] MEDS ORDERED: MORPHINE 4 MG/ML SYR ONE (04:58)
[2024-06-21 05:09] LABS: Calcium Oxalate Crystals- Ur Few /HPF (None Seen); Sqamous Epithelial <5 /HPF (None Seen); Urine Bacteria <20 /HPF (<20); Urine Bilirubin NEGATIVE (Negative); Urine Blood 3+ (OVER) (Negative); Urine Clarity Extremely Turbid (Clear); Urine Color Yellow (Yellow); Urine Culture Reflex Order NOT NEEDED; Urine Glucose 1+ (Negative); Urine Ketones NEGATIVE (Negative); Urine Microscopic Reflex YN ORDER UMIC; Urine Mucus 4+ /HPF (None Seen); Urine Nitrite NEGATIVE (Negative); Urine Protein 1+ (Negative); Urine RBC >50 /HPF (None Seen); Urine Urobilinogen 1+ (Normal); Urine WBC <5 /HPF (<5); Urine pH 5.5 (5.0-7.0)
--- NOTE | 2024-06-21 06:31 | RAD REPORT ---
EXAM: CT abdomen and pelvis without intravenous contrast CLINICAL DATA: 58 years Female back pain TECHNICAL DATA: Axial CT imaging of the abdomen and pelvis was performed without oral or intravenous contrast. Sagi ttal and coronal reconstructed images were then performed. The CT study is performed according to ALARA (as low as reasonably achievable) or ALARA/IMAGE GENTLY, with automatic adjustment of mA and/or kV according to patient size. Performed on: 06/21/2024 at 4:10 AM Comparison: CT abdomen and pelvis with contrast performed on 09/02/2022. FINDINGS: Lung bases: The lung bases are clear. The heart is normal in size. Liver: The liver is normal in size and configuration. No focal hepatic abnormalities are appreciated on this unenhanced scan. Liver attenuation is within normal limits. Spleen: The spleen is normal in size, configuration and attenuation. No focal splenic abnormalities a re appreciated on this unenhanced scan. Gallbladder and bile duct: The gallbladder is surgically absent. There is no biliary ductal dilatat ion. Pancreas: The pancreas is grossly normal in size and configuration. Adrenal Glands: The adrenal glands are normal in size and configuration. Kidneys: The kidneys are normal in size and configuration. There is mild to moderate right-sided hydr onephrosis and hydroureter secondary to a 5 x 6 x 7 mm calcification in the distal right ureter at the level of the inferior right SI joint. There is a punctate nonobstructing calculus in the upper po le of the left kidney. No focal renal abnormalities are identified. Stomach: The stomach is moderately distended with fluid and food contents. There is no definite hiata l hernia. Bowel: The bowel gas pattern is non specific and non obstructive. Appendix: There is no CT evidence of acute appendicitis. Free air: There is no evidence of free air. Free fluid: There is no evidence of free fluid. Vasculature: The aorta is normal in caliber and contour. The inferior vena cava is grossly unremarkab le. Lymphadenopathy: No pathologic lymphadenopathy is identified. Bladder: The bladder is decompressed on this examination.. Reproductive: The uterus is grossly within normal limits. Bones: No acute osseous abnormalities are identified. There is mild degenerative spondylosis along th e thoracolumbar spine. Soft tissues: Again demonstrated is a morris appearance of the mesenteric fat within the central abdom en with what appears to be a thin pseudocapsule. A few nonspecific mesenteric lymph nodes are present as well. This appearance can be seen with sclerosing mesenteritis. Other possible etiologies include mesenteric edema, mesenteric lymphoma, inflammatory pseudotumor or less likely carcinomatosis. IMPRESSION: 1. Mild to moderate right-sided hydronephrosis and hydroureter secondary to a 5 x 6 x 7 mm calcific ation in the distal right ureter at the level of the inferior right SI joint. 2. Punctate nonobstructing calculus in the upper pole of the left kidney. 3. Again demonstrated is a morris appearance of the mesenteric fat within the central abdomen with w hat appears to be a thin pseudocapsule. A few nonspecific mesenteric lymph nodes are present as well. This appearance can be seen with sclerosing mesenteritis. Other possible etiologies include mes enteric edema, mesenteric lymphoma, inflammatory pseudotumor or less likely carcinomatosis. 4. Status post cholecystectomy. Electronically signed by: Sho Melchor DO 06/21/2024 06:07 AM [facility] Due to temporary technical issues with the [employer] reporting system, reports are being armand d by the in-house radiologist without review as a courtesy to ensure prompt reporting the interpreting radiologist is fully responsible for the content of the report. Transcribed Date/Time: 06/21/2024 6:31 AM
--- NOTE | 2024-06-21 06:42 | ER ---
Nurse's Notes [facility] Name: Carley Caceres Age: 58 yrs Sex: Female : 1965 Arrival Date: 06/21/2024 Time: 03:17 Bed 14 Private MD: Diagnosis: Calculus of ureter Presentation: 06/21 03:43 Chief complaint: Patient states: right lower back pain that radiates to stomach, pain vc1 similar to when I had kidney stones. Frequent urination. Coronavirus screen: Client denies travel out of the [place] in the last 14 days. At this time, the client does not indicate any symptoms associated with coronavirus-19. Ebola Screen: Patient negative for fever greater than or equal to 101.5 degrees Fahrenheit, and additional compatible Ebola Virus Disease symptoms Patient denies exposure to infectious person. Patient denies travel to an Ebola-affected area in the 21 days before illness onset. No symptoms or risks identified at this time. Initial Sepsis Screen: Does the patient meet any 2 criteria? No. Patient's initial sepsis screen is negative. Does the patient have a suspected source of infection? No. Patient's initial sepsis screen is negative. Risk Assessment: Do you want to hurt yourself or someone else? Patient reports no desire to harm self or others. Onset of symptoms was June 21, 2024. 03:43 Method Of Arrival: Ambulatory vc1 03:43 Acuity: BHAVYA 3 vc1 Triage Assessment: 03:48 General: Appears in no apparent distress. uncomfortable, well developed, well vc1 nourished, Behavior is calm, cooperative, appropriate for age. Pain: Complains of pain in right low back Pain radiates to anterior aspect of right lateral abdomen and right lower quadrant Pain currently is 7 out of 10 on a pain scale. Quality of pain is described as sharp. EENT: No deficits noted. No signs and/or symptoms were reported regarding the EENT system. Neuro: Level of Consciousness is awake, alert, obeys commands, Oriented to person, place, time, situation, Appropriate for age. Cardiovascular: Capillary refill < 3 seconds Patient's skin is warm and dry. Respiratory: Airway is patent Respiratory effort is even, unlabored, Respiratory pattern is regular, symmetrical. GI: Reports lower abdominal pain. : Reports urinary frequency. Derm: Skin is intact, is healthy with good turgor, Skin is dry, Skin is normal, Skin temperature is warm. Musculoskeletal: Circulation, motion, and sensation intact. Range of motion: intact in all extremities. Historical: - Allergies: 03:45 No Known Allergies; vc1 - Home Meds: 03:45 metformin 500 mg Oral tablet once [Active]; cholesterol med 500 mg Oral tablet once vc1 [Active]; - PMHx: 03:45 diabetes mellitus; Hypertensive disorder; Kidney stones; vc1 - PSHx: 03:45 None; vc1 - Immunization history:: Client reports receiving the 2nd dose of the Covid vaccine, Flu vaccine is up to date. - Infectious Disease History:: Denies. - Social history:: Smoking status: Patient denies any tobacco usage or history of. - Family history:: not pertinent. - Hospitalizations: : No recent hospitalization is reported. Screenin:47 [facility] ED Fall Risk Assessment (Adult) History of falling in the last 3 months, vc1 including since admission No falls in past 3 months (0 pts) Confusion or Disorientation No (0 pts) Intoxicated or Sedated No (0 pts) Impaired Gait No (0 pts) Mobility Assist Device Used No (0 pt) Altered Elimination No (0 pt) Score/Fall Risk Level 0 - 2 = Low Risk Oriented to surroundings, Maintained a safe environment, Educated pt \T\ family on fall prevention, incl call for assistance when getting out of bed. Abuse screen: Denies threats or abuse. Nutritional screening: No deficits noted. Tuberculosis screening: No symptoms or risk factors identified. Assessment: 04:04 Reassessment: Patient and/or family updated on plan of care and expected duration. Pain br2 level reassessed. Patient is alert, oriented x 3, equal unlabored respirations, skin warm/dry/pink. General: Appears uncomfortable, Behavior is calm, cooperative. Pain: Complains of pain in low back area and right low back Pain radiates to right lower quadrant. Neuro: [place] Agitation-Sedation Scale (RASS): 0 - Alert and Calm Level of Consciousness is awake, alert, obeys commands, Oriented to person, place, time, situation. Cardiovascular: Capillary refill < 3 seconds. Respiratory: Airway is patent Respiratory effort is even, unlabored, Respiratory pattern is regular, symmetrical. GI: Reports lower abdominal pain. GI: Abdomen is non-distended. : Reports urinary frequency. Derm: No signs and/or symptoms reported regarding the dermatologic system. Musculoskeletal: Capillary refill < 3 seconds, Range of motion: intact in all extremities. 05:27 Reassessment: Patient and/or family updated on plan of care and expected duration. Pain br2 level reassessed. Patient is alert, oriented x 3, equal unlabored respirations, skin warm/dry/pink. Patient states feeling better. Patient states symptoms have improved. Vital Signs: 03:43 BP 142 / 72; Pulse 75; Resp 14; Temp 97.9; Pulse Ox 100% ; Weight 68.04 kg; Height 5 vc1 ft. 3 in. ; Pain 7/10; 05:05 BP 129 / 71; Pulse 81; Resp 18 S; Pulse Ox 98% on R/A; Pain 5/10; br2 05:27 BP 118 / 70; Pulse 69; Resp 18 S; Pulse Ox 96% on R/A; br2 05:59 BP 116 / 67; Pulse 65; Resp 18; Pulse Ox 97% ; Pain 3/10; br2 07:03 BP 111 / 63; Pulse 82; Resp 18 S; Pulse Ox 97% on R/A; Pain 2/10; br2 03:43 Body Mass Index 26.57 (68.04 kg, 160.02 cm) vc1 03:43 Pain Scale: Adult vc1 05:05 Pain Scale: Adult br2 05:59 Pain Scale: Adult br2 07:03 Pain Scale: Adult br2 ED Course: 03:19 Patient arrived in ED. [id number] 03:20 William Hernandez MD is Attending Physician. rn 03:40 Inserted saline lock: 20 gauge in right antecubital area, using aseptic technique. br2 Blood collected. Flushed with 10 mL NS. 03:45 Triage completed. vc1 03:47 Arm band placed on right wrist. vc1 03:48 Patient has correct armband on for positive identification. Bed in low position. Call vc1 light in reach. Pulse ox on. NIBP on. 03:50 Provided Education on: urine sample. vc1 03:58 Dior Banda, EILEEN is Primary Nurse. br2 04:06 CT Stone Protocol In Process Unspecified. EDMS 04:48 Urinalysis w/ reflexes Sent. br2 07:04 No provider procedures requiring assistance completed. IV discontinued, intact, br2 bleeding controlled, No redness/swelling at site. Pressure dressing applied. Administered Medications: 05:07 Drug: Flomax PO 0.4 mg PO once Route: PO; br2 05:58 Follow up: Response: No adverse reaction br2 05:07 Drug: Magnesium Sulfate IVPB 1 grams IVPB once over 1 hrs Route: IVPB; Infused Over: 1 br2 hrs; Site: right antecubital; 06:06 Follow up: Response: No adverse reaction; IV Status: Completed infusion; IV Intake: br2 100ml 05:07 Drug: Ondansetron IVP 4 mg IVP once; over 2 minutes Route: IVP; Site: right antecubital;br2 05:58 Follow up: Response: No adverse reaction br2 05:08 Drug: morphine IVP or IV 4 mg IVP once over 4 mins Route: IVP; Infused Over: 4 mins; br2 Site: right antecubital; 05:58 Follow up: Response: No adverse reaction; Pain is decreased br2 Medication: 03:48 VIS not applicable for this client. vc1 Intake: 06:06 IV: 100ml; Total: 100ml. br2 Outcome: 06:41 Discharge ordered by . rn 07:04 Discharged to senior care. br2 07:04 Condition: good 07:04 Discharge instructions given to family, Instructed on discharge instructions, follow up and referral plans. Demonstrated understanding of instructions, 07:04 Patient left the ED. br2 Signatures: Dispatcher [employer] EDMS William Hernandez MD MD rn Jeffries, Jennifer [id number] Dione Bishop RN RN vc1 Dior Banda RN RN br2
--- NOTE | 2024-06-21 06:42 | EDPHYS ---
Physician Documentation [facility] Name: Carley Caceres Age: 58 yrs Sex: Female : 1965 Arrival Date: 06/21/2024 Time: 03:17 Bed 14 Private MD: ED Physician William Hernandez HPI: 06/21 04:09 This 58 yrs old Female presents to ER via Ambulatory with complaints of Low Back Pain, rn Nausea. 04:09 The patient presents with pain that is acute. The symptoms are located in the low back, rn right low back. Onset: The symptoms/episode began/occurred 1 hour(s) ago. Modifying factors: The patient symptoms are alleviated by nothing, the patient symptoms are aggravated by nothing. Severity of symptoms: At their worst the symptoms were moderate, in the emergency department the symptoms are unchanged. The patient has experienced similar episodes in the past. Patient reports right flank pain and low back pain, feels identical to previous kidney stones. Has never had surgery to remove stones and has always passed them on her own. This pain started 1 hour ago. No hematuria. No trauma. Historical: - Allergies: 03:45 No Known Allergies; vc1 - Home Meds: 03:45 metformin 500 mg Oral tablet once [Active]; cholesterol med 500 mg Oral tablet once vc1 [Active]; - PMHx: 03:45 diabetes mellitus; Hypertensive disorder; Kidney stones; vc1 - PSHx: 03:45 None; vc1 - Immunization history:: Client reports receiving the 2nd dose of the Covid vaccine, Flu vaccine is up to date. - Infectious Disease History:: Denies. - Social history:: Smoking status: Patient denies any tobacco usage or history of. - Family history:: not pertinent. - Hospitalizations: : No recent hospitalization is reported. ROS: 04:09 Constitutional: Negative for fever, chills, and weight loss, Cardiovascular: Negative rn for chest pain, palpitations, and edema, Respiratory: Negative for shortness of breath, cough, wheezing, and pleuritic chest pain, Abdomen/GI: Negative for abdominal pain, vomiting, diarrhea, and constipation, Back: Positive for low back pain : Negative for injury, bleeding, discharge, and swelling, MS/Extremity: Negative for injury and deformity, Skin: Negative for injury, rash, and discoloration, Neuro: Negative for headache, weakness, numbness, tingling, and seizure, Exam: 04:09 Constitutional: This is a well developed, well nourished patient who is awake, alert, rn appears mildly uncomfortable. Ambulatory to room without difficulty or assistance Cardiovascular: Regular rate and rhythm. No pulse deficits. Abdomen/GI: Soft, non-tender Back: No spinal tenderness. No costovertebral tenderness. Neuro: Awake and alert, GCS 15. Normal gait. Vital Signs: 03:43 BP 142 / 72; Pulse 75; Resp 14; Temp 97.9; Pulse Ox 100% ; Weight 68.04 kg; Height 5 vc1 ft. 3 in. ; Pain 7/10; 05:05 BP 129 / 71; Pulse 81; Resp 18 S; Pulse Ox 98% on R/A; Pain 5/10; br2 05:27 BP 118 / 70; Pulse 69; Resp 18 S; Pulse Ox 96% on R/A; br2 05:59 BP 116 / 67; Pulse 65; Resp 18; Pulse Ox 97% ; Pain 3/10; br2 07:03 BP 111 / 63; Pulse 82; Resp 18 S; Pulse Ox 97% on R/A; Pain 2/10; br2 03:43 Body Mass Index 26.57 (68.04 kg, 160.02 cm) vc1 03:43 Pain Scale: Adult vc1 05:05 Pain Scale: Adult br2 05:59 Pain Scale: Adult br2 07:03 Pain Scale: Adult br2 MDM: 03:20 Medical Screening Exam initiated rn 05:33 ED course: Pain markedly improved. CT shows distal ureteral stone approximately 5 to 6 rn mm per my interpretation. Anticipate discharge home, will continue to observe here until pain well-controlled. 06:40 Differential diagnosis: Kidney stone. Data reviewed: vital signs, nurses notes, cook house laborer test result(s), radiologic studies, CT scan, and as a result, I will discharge patient. Counseling: I had a detailed discussion with the patient and/or guardian regarding the historical points, exam findings, and any diagnostic results supporting the discharge/admit diagnosis, lab results, radiology results, the need for outpatient follow up, to return to the emergency department if symptoms worsen or persist or if there are any questions or concerns that arise at home. Response to treatment: the patient's symptoms have markedly improved after treatment, and as a result, I will discharge patient. 06/21 03:20 Order name: CBC with Diff; Complete Time: 04:35 rn 06/21 03:20 Order name: CMP; Complete Time: 04:44 rn 06/21 03:20 Order name: Urinalysis w/ reflexes; Complete Time: 05:12 rn 06/21 03:20 Order name: CT Stone Protocol rn 06/21 03:20 Order name: IV Saline Lock; Complete Time: 04:48 rn 06/21 03:20 Order name: Labs collected and sent; Complete Time: 04:48 rn Administered Medications: 05:07 Drug: Flomax PO 0.4 mg PO once Route: PO; br2 05:58 Follow up: Response: No adverse reaction br2 05:07 Drug: Magnesium Sulfate IVPB 1 grams IVPB once over 1 hrs Route: IVPB; Infused Over: 1 br2 hrs; Site: right antecubital; 06:06 Follow up: Response: No adverse reaction; IV Status: Completed infusion; IV Intake: br2 100ml 05:07 Drug: Ondansetron IVP 4 mg IVP once; over 2 minutes Route: IVP; Site: right antecubital;br2 05:58 Follow up: Response: No adverse reaction br2 05:08 Drug: morphine IVP or IV 4 mg IVP once over 4 mins Route: IVP; Infused Over: 4 mins; br2 Site: right antecubital; 05:58 Follow up: Response: No adverse reaction; Pain is decreased br2 Disposition Summary: 06/21/24 06:41 Discharge Ordered Notes: Location: Home rn Problem: new rn Symptoms: have improved rn Condition: Stable rn Diagnosis - Calculus of ureter rn Followup: rn - With: Private Physician - When: As needed - Reason: Recheck today's complaints, Re-evaluation by your physician Discharge Instructions: - Discharge Summary Sheet rn - Kidney Stones rn - Renal Colic rn - Dietary Guidelines to Help Prevent Kidney Stones rn Forms: - Medication Reconciliation Form rn - Antibiotic agriculture intern - Prescription Opioid Use rn - Patient Portal Instructions rn - Leadership Thank You Letter rn Prescriptions: - Flomax 0.4 mg Oral capsule - take 1 capsule ORAL route every 24 hours As needed; 10 capsule; Refills: 0, rn Product Selection Permitted - Cipro 500 mg Oral Tablet - take 1 tablet ORAL route every 12 hours for 7 days; 14 tablet; Refills: 0, rn Product Selection Permitted - Tramadol 50 mg Oral Tablet - take 1 tablet ORAL route every 8 hours as needed; 12 tablet; Refills: 0, rn Product Selection Permitted Signatures: Dispatcher [employer] William Jacobo MD MD rn Calcote, Vanessa, RN RN vc1 Dior Banda RN RN br2 Corrections: (The following items were deleted from the chart) 04:11 04:09 Constitutional: Negative for fever, chills, and weight loss, Cardiovascular: rn Negative for chest pain, palpitations, and edema, Respiratory: Negative for shortness of breath, cough, wheezing, and pleuritic chest pain, Abdomen/GI: Negative for abdominal pain, nausea, vomiting, diarrhea, and constipation, Back: Positive for low back pain : Negative for injury, bleeding, discharge, and swelling, MS/Extremity: Negative for injury and deformity, Skin: Negative for injury, rash, and discoloration, Neuro: Negative for headache, weakness, numbness, tingling, and seizure, rn
[2024-06-21 07:28] VITALS: TEMP 97.9
[2024-06-21 07:40] VITALS: O2SAT 97
[2024-06-21 07:42] VITALS: BP 111/63
== END 2024-06-21 07:04 | disposition home or self-care (01) ==
LOC: ER 03:17
DX: N20.1 Calculus of ureter (principal); E11.9 Type 2 diabetes mellitus without complications; I10 Essential (primary) hypertension; Z79.899 Other long term (current) drug therapy; Z79.84 Long term (current) use of oral hypoglycemic drugs
CPT/HCPCS: 96365; 85025; 81001; 36415; 80053; 76377; 74176; 96375; 99284; J3475; J2405

== ENCOUNTER 2024-08-13 15:47 | Emergency (ER) | payer BC ==
[2024-08-13 16:24] LABS: Absolute Eosinophils 0.2 K/uL (0-0.5); Absolute Lymphocytes (CBC) 1.3 K/uL (0.7-4.9); Absolute Monocytes 0.8 K/uL (0.1-1.3); Absolute Neutrophil 7.7 K/uL (1.8-8.0); Basophils % 0.4 % (0-1.3); Eosinophils % 2.1 % (0-4.4); Hematocrit 42.6 % (36.0-45.0); Hemoglobin 15.1 g/dL (12.0-15.0); Lymphocytes % 12.7 % (15.3-44.8); MCH 29.1 pg (27.0-35.0); MCHC 35.6 g/dL (32.0-36.0); MCV 81.7 fL (80-100); MPV 7.3 fL (7.6-11.3); Monocytes % 8.1 % (3.3-12.3); Neutrophils % 76.7 % (41.7-73.7); Platelets 311 thou/uL (152-406); RBC Red Blood Cell Count 5.21 M/uL (3.86-4.86); Red Cell Distribution Width 12.9 % (12.1-15.2)
[2024-08-13 16:27] LABS: Specific Gravity 1.028 (1.005-1.030); Sqamous Epithelial <5 /HPF (None Seen); Urine Bacteria None Seen /HPF (<20); Urine Bilirubin NEGATIVE (Negative); Urine Blood 2+ (Negative); Urine Clarity Extremely Turbid (Clear); Urine Color Yellow (Yellow); Urine Crystals Unidentified Few /HPF (None Seen); Urine Culture Reflex Order REFLEXED; Urine Glucose TRACE (Negative); Urine Ketones NEGATIVE (Negative); Urine Microscopic Reflex YN ORDER UMIC; Urine Mucus 3+ /HPF (None Seen); Urine Nitrite NEGATIVE (Negative); Urine Protein TRACE (Negative); Urine RBC 21-50 /HPF (None Seen); Urine Urobilinogen 1+ (Normal); Urine WBC 20-50 /HPF (<5); Urine WBC Clump Rare /HPF (None Seen); Urine Yeast (Budding) Trace /HPF (None Seen); Urine pH 5.5 (5.0-7.0)
--- NOTE | 2024-08-13 16:39 | RAD REPORT ---
EXAMINATION: CT ABDOMEN AND PELVIS WITHOUT CONTRAST CLINICAL INDICATION: FLANK PAIN TECHNIQUE: CT abdomen and pelvis was performed, without IV contrast, as per department protocol. Axia l, sagittal and coronal reconstructions were obtained. One or more of the following dose reduction techniques were used: Automated exposure control, adjustment of the mA and kV according to the patien t size, and iterative reconstruction. Unless otherwise specified, incidental findings do not require dedicated imaging follow-up. COMPARISON: 06/21/2024 FINDINGS: The lack of intravenous contrast limits the sensitivity of this exam for evaluation of solid visceral organs, vascular structures, and retroperitoneum. LOWER CHEST: The visualized lung bases are clear. LIVER:Normal in size and contour. No focal lesion. Cholecystectomy clips. SPLEEN: Normal size. No focal lesion. PANCREAS: No mass, ductal dilation, or ammon-pancreatic fluid. ADRENALS: Normal; no mass. KIDNEYS AND URETERS: 6 mm stone is present distal right ureter resulting in moderate right hydronephr osis and hydroureter. URINARY BLADDER: Normal contour. GASTROINTESTINAL TRACT: No evidence of bowel obstruction, significant free fluid, free air or abscess . APPENDIX: Normal appendix. LYMPH NODES: No lymphadenopathy. MUSCULOSKELETAL: No acute or suspicious osseous abnormality. IMPRESSION: 6 mm stone distal right ureter resulting in moderate right hydronephrosis.
[2024-08-13 16:40] LABS: Albumin 3.6 g/dL (3.4-5.0); Albumin/Globulin Ratio 0.9 (1.1-1.8); Bilirubin Total 0.9 mg/dL (0.2-1.0); Globulin 3.8 g/dL (2.3-3.5); Protein, Total 7.4 g/dL (6.4-8.2)
[2024-08-13] MEDS ORDERED: NA CHLORIDE 0.9% 1,000 ML ONE (16:55)
[2024-08-13] MEDS ORDERED: TAMSULOSIN 0.4 MG SR CAP ONE (16:55)
[2024-08-13] MEDS ORDERED: KETOROLAC 30 MG/ML INJ ONE (16:55)
--- NOTE | 2024-08-13 17:15 | ER ---
Nurse's Notes [facility] Name: Carley Caceres Age: 58 yrs Sex: Female : 1965 Arrival Date: 08/13/2024 Time: 15:47 Bed 20 Private MD: Diagnosis: Calculus of ureter Presentation: 08/13 16:06 Chief complaint: Patient states: right flank pain started last night, hx of kidney aa5 stones. Coronavirus screen: At this time, the client does not indicate any symptoms associated with coronavirus-19. Ebola Screen: Patient denies travel to an Ebola-affected area in the 21 days before illness onset. Initial Sepsis Screen: Does the patient meet any 2 criteria? No. Patient's initial sepsis screen is negative. Does the patient have a suspected source of infection? No. Patient's initial sepsis screen is negative. Risk Assessment: Do you want to hurt yourself or someone else? Patient reports no desire to harm self or others. Onset of symptoms was July 2024. 16:06 Acuity: BHAVYA 3 aa5 16:06 Method Of Arrival: Ambulatory aa5 Historical: - Allergies: 16:05 No Known Allergies; aa5 - PMHx: 16:05 diabetes mellitus; Hypertensive disorder; Kidney stones; aa5 - Immunization history:: Adult Immunizations unknown. - Infectious Disease History:: Denies. - Social history:: Smoking status: Patient denies any tobacco usage or history of. Screenin:35 [facility] ED Fall Risk Assessment (Adult) History of falling in the last 3 months, jb4 including since admission No falls in past 3 months (0 pts) Confusion or Disorientation No (0 pts) Intoxicated or Sedated No (0 pts) Impaired Gait No (0 pts) Mobility Assist Device Used No (0 pt) Altered Elimination No (0 pt) Score/Fall Risk Level 0 - 2 = Low Risk Oriented to surroundings, Maintained a safe environment. Abuse screen: Denies threats or abuse. Nutritional screening: No deficits noted. Tuberculosis screening: No symptoms or risk factors identified. Assessment: 16:16 General: Appears in no apparent distress. uncomfortable, Behavior is calm, cooperative, jb4 appropriate for age. Pain: Complains of pain in right flank Pain does not radiate. Pain currently is 6 out of 10 on a pain scale. Neuro: Level of Consciousness is awake, alert, obeys commands, Oriented to person, place, time, situation. Cardiovascular: Patient's skin is warm and dry. Respiratory: Airway is patent Respiratory effort is even, unlabored, Respiratory pattern is regular, symmetrical. GI: Abdomen is flat, non-distended. : Reports pain in right flank(s). Derm: Skin is intact, Skin is pink, warm \T\ dry. Musculoskeletal: Circulation, motion, and sensation intact. Range of motion: intact in all extremities. 17:35 Reassessment: Patient appears in no apparent distress at this time. Patient and/or jb4 family updated on plan of care and expected duration. Pain level reassessed. Patient is alert, oriented x 3, equal unlabored respirations, skin warm/dry/pink. D/c pending completion of IV fluids. Vital Signs: 16:06 BP 143 / 88; Pulse 84; Resp 18 S; Temp 97.3(TE); Pulse Ox 99% on R/A; Height 5 ft. 3 aa5 in. (R); 17:35 BP 113 / 70; Pulse 66; Resp 16; Pulse Ox 98% on R/A; jb4 ED Course: 16:00 Patient arrived in ED. jj6 16:01 [facility]C [facility] kb 16:01 Ramiro Portillo MD is Attending Physician. kb 16:05 Arm band placed on. aa5 16:06 Triage completed. aa5 16:16 Patient has correct armband on for positive identification. Bed in low position. Call jb4 light in reach. Side rails up X 1. Provided Education on: plan of care. 16:16 CBC with Diff Sent. jb4 16:16 CMP Sent. jb4 16:16 Urinalysis w/ reflexes Sent. jb4 16:16 No provider procedures requiring assistance completed. Inserted saline lock: 20 gauge jb4 in right antecubital area, using aseptic technique. Blood collected. 16:31 CT Stone Protocol In Process Unspecified. EDMS 17:32 Yogesh Barnard, RN is Primary Nurse. jb4 18:13 IV discontinued, intact, bleeding controlled, No redness/swelling at site. Pressure jb4 dressing applied. Administered Medications: 17:02 Drug: NS 0.9% IV 1000 ml IV at 1000 ml once; to be given as a bolus over 60 minutes jb4 Route: IV; Rate: 1000 ml; Site: right antecubital; 18:14 Follow up: Response: No adverse reaction; IV Status: Completed infusion; IV Intake: jb4 1000ml 17:02 Drug: Ketorolac IVP 15 mg IVP once Route: IVP; Site: right antecubital; jb4 18:14 Follow up: Response: No adverse reaction; Marked relief of symptoms jb4 17:02 Drug: Flomax PO 0.4 mg PO once Route: PO; jb4 18:14 Follow up: Response: No adverse reaction jb4 Medication: 17:35 VIS not applicable for this client. jb4 Intake: 18:14 IV: 1000ml; Total: 1000ml. jb4 Outcome: 17:15 Discharge ordered by . kb 18:13 Discharged to home ambulatory, jb4 18:13 Condition: stable 18:13 Discharge instructions given to patient, Instructed on discharge instructions, follow up and referral plans. medication usage, Demonstrated understanding of instructions, follow-up care, medications, Prescriptions given X 3, 18:14 Patient left the ED. jb4 Signatures: Dispatcher [employer] EDMS Rosa Goldstein, DIRECTOR BUSINESS INTEGRATION-C DIRECTOR BUSINESS INTEGRATION-CkSelma Zhang RN RN aa5 Yogesh Barnard RN RN jb4 Felicia Darbyj6 Corrections: (The following items were deleted from the chart) 17:39 17:35 Reassessment: Patient appears in no apparent distress at this time. Patient jb4 and/or family updated on plan of care and expected duration. Pain level reassessed. Patient is alert, oriented x 3, equal unlabored respirations, skin warm/dry/pink. jb4
--- NOTE | 2024-08-13 17:15 | EDPHYS ---
Physician Documentation [facility] Name: Carley Caceres Age: 58 yrs Sex: Female : 1965 Arrival Date: 08/13/2024 Time: 15:47 Bed 20 Private MD: ED Physician Ramiro Portillo HPI: 08/13 16:11 This 58 yrs old Female presents to ER via Ambulatory with complaints of Possible Kidney kb Stone. 16:11 Pt is a 58 year old female who presents for right flank pain that started yesterday and kb got worse today. States it feels similar to previous kidney stones. Denies fever, n/v/d, urinary symptoms, abd pain. Historical: - Allergies: 16:05 No Known Allergies; aa5 - PMHx: 16:05 diabetes mellitus; Hypertensive disorder; Kidney stones; aa5 - Immunization history:: Adult Immunizations unknown. - Infectious Disease History:: Denies. - Social history:: Smoking status: Patient denies any tobacco usage or history of. ROS: 16:11 Constitutional: As per HPI kb Exam: 16:11 Constitutional: This is a well developed, well nourished patient who is awake, alert, kb and in no acute distress. Head/Face: Normocephalic, atraumatic. ENT: Moist Mucous membranes Cardiovascular: Regular rate Respiratory: Respirations even and unlabored. No increased work of breathing. Talking in full sentences Abdomen/GI: Soft, non-tender. No distention Skin: Warm, dry with normal turgor. Normal color. MS/ Extremity: Pulses equal, no cyanosis. Neurovascular intact. Full, normal range of motion. Neuro: Awake and alert, GCS 15, oriented to person, place, time, and situation. 16:11 Back: CVA tenderness, that is mild, is noted on the right, Vital Signs: 16:06 BP 143 / 88; Pulse 84; Resp 18 S; Temp 97.3(TE); Pulse Ox 99% on R/A; Height 5 ft. 3 aa5 in. (R); 17:35 BP 113 / 70; Pulse 66; Resp 16; Pulse Ox 98% on R/A; jb4 MDM: 16:01 Medical Screening Exam initiated kb 16:11 Differential diagnosis: uti, kidney stone, pyelonephritis. Data reviewed: vital signs, kb nurses notes. 17:14 Counseling: I had a detailed discussion with the patient and/or guardian regarding the kb historical points, exam findings, and any diagnostic results supporting the discharge/admit diagnosis, lab results, radiology results, the need for outpatient follow up, a urologist, to return to the emergency department if symptoms worsen or persist or if there are any questions or concerns that arise at home. ED course: Pain controlled, pt afebrile, no nausea, vomiting. Pt stable for discharge and will follow up with urology. 08/13 16:04 Order name: CBC with Diff; Complete Time: 16:28 kb 08/13 16:04 Order name: CMP; Complete Time: 16:45 kb 08/13 16:04 Order name: Urinalysis w/ reflexes; Complete Time: 16:32 kb 08/13 16:34 Order name: Urine Culture EDMS 08/13 16:04 Order name: CT Stone Protocol; Complete Time: 16:45 kb 08/13 16:04 Order name: IV Saline Lock; Complete Time: 16:16 kb 08/13 16:04 Order name: Labs collected and sent; Complete Time: 16:16 kb Administered Medications: 17:02 Drug: NS 0.9% IV 1000 ml IV at 1000 ml once; to be given as a bolus over 60 minutes jb4 Route: IV; Rate: 1000 ml; Site: right antecubital; 18:14 Follow up: Response: No adverse reaction; IV Status: Completed infusion; IV Intake: jb4 1000ml 17:02 Drug: Ketorolac IVP 15 mg IVP once Route: IVP; Site: right antecubital; jb4 18:14 Follow up: Response: No adverse reaction; Marked relief of symptoms jb4 17:02 Drug: Flomax PO 0.4 mg PO once Route: PO; jb4 18:14 Follow up: Response: No adverse reaction jb4 Disposition Summary: 08/13/24 17:15 Discharge Ordered Notes: Location: Home kb Condition: Stable kb Diagnosis - Calculus of ureter kb Followup: kb - With: Emergency Department - When: As needed - Reason: Worsening of condition Followup: kb - With: Private Physician - When: 2 - 3 days - Reason: Recheck today's complaints, Continuance of care, Re-evaluation by your physician Discharge Instructions: - Discharge Summary Sheet kb - Kidney Stones, [id number]-Ppal kb - Dietary Guidelines to Help Prevent Kidney Stones kb Forms: - Medication Reconciliation Form kb - Antibiotic Education kb - Prescription Opioid Use kb - Patient Portal Instructions kb - Leadership Thank You Letter kb Prescriptions: - Flomax 0.4 mg Oral capsule - take 1 capsule ORAL route daily; 10 capsule; Refills: 0, Product Selection kb Permitted - Cipro 500 mg Oral Tablet - take 1 tablet ORAL route every 12 hours for 7 days; 14 tablet; Refills: 0, kb Product Selection Permitted - Tramadol 50 mg Oral Tablet - take 1 tablet ORAL route every 8 hours as needed; 12 tablet; Refills: 0, kb Product Selection Permitted Signatures: Dispatcher [employer] EDMS Rosa Goldstein, PAPO-C ELL TEACHER-Selma Grayson, RN RN aa5 Yogesh Barnard, RN RN jb4 Corrections: (The following items were deleted from the chart) 16:05 16:05 CBC+H.LAB.BRZ ordered. EDMS EDMS 16:05 16:05 COMPREHENSIVE METABOLIC PANEL+C.LAB.BRZ ordered. EDMS EDMS 16:05 16:05 Urinalysis+U.LAB.BRZ ordered. EDMS EDMS 16:05 16:05 Stone Protocol+CT.RAD.BRZ ordered. EDMS EDMS
[2024-08-13 18:26] VITALS: TEMP 97.3
[2024-08-13 18:27] VITALS: BP 113/70; O2SAT 98
== END 2024-08-13 18:14 | disposition home or self-care (01) ==
LOC: ER 15:47
DX: N20.1 Calculus of ureter (principal); Z87.442 Personal history of urinary calculi
CPT/HCPCS: 96361; 87088; 85025; 81001; 87086; 36415; 80053; 76377; 74176; 96374; 99284; J7030